=== PATIENT | male | born 1935 | race Asian ===

== ENCOUNTER 2019-03-20 18:04 | Observation (INO) | payer MEDICAID, SELFPAY ==
[2019-03-20 18:06] VITALS: BP 229/111; PULSE 95; RESP 20; TEMP 36.1; O2SAT 100; BMI 32.2
--- NOTE | 2019-03-20 18:55 | EKG12_ITS ---
Test Reason : HTN Blood Pressure : / mmHG Vent. Rate : 086 BPM Atrial Rate : 086 BPM P-R Int : 166 ms QRS Dur : 078 ms QT Int : 362 ms P-R-T Axes : 054 -08 026 degrees QTc Int : 433 ms Normal sinus rhythm Normal ECG Confirmed by NAZARIO MENESES ([id number]), food editor ASHA PLATT ([id number] on 03/26/2019 3:36:08 PM Referred By: Jose Young Confirmed By:NAZARIO MENESES
--- NOTE | 2019-03-20 19:00 | RAD_ITS ---
STUDY: X-RAY CHEST REASON FOR EXAM: Male, 83 years old. Chest pain TECHNIQUE: Frontal view of the chest COMPARISON: None. FINDINGS: The lungs are clear. There are no pleural effusions. There is no pneumothorax. The heart is normal in size. The visualized osseous structures are within normal limits. RAD/Chest 1 View (Portable) IMPRESSION: No acute thoracic pathology. Electronically Signed: Bernabe Mendoza, at 19:14 EDT Tel , Service support ,
--- NOTE | 2019-03-20 19:03 | US_ITS ---
STUDY: VENOUS DOPPLER ULTRASOUND - LEFT LOWER EXTREMITY REASON FOR EXAM: Male, 83 years old. Swelling TECHNIQUE: Ultrasound evaluation of the deep vein system to include eller-scale imaging and compression was performed. Eller-scale imaging and Doppler sonographic evaluation, including duplex spectral analysis and qualitative color flow sonography, was performed. COMPARISON: None. FINDINGS: Common Femoral Vein: Normal compression, spontaneity and augmentation. Normal color Doppler. Common Femoral Vein/Greater Saphenous Junction: Normal compression, spontaneity and augmentation. Normal color Doppler. Deep Femoral Vein: Normal compression, spontaneity and augmentation. Normal color Doppler. Femoral Proximal: Normal compression, spontaneity and augmentation. Normal color Doppler. Femoral Middle: Normal compression, spontaneity and augmentation. Normal color Doppler. Femoral Distal: Normal compression, spontaneity and augmentation. Normal color Doppler. Popliteal Vein: Normal compression, spontaneity and augmentation. Normal color Doppler. Posterior Tibial Vein: Normal compression, spontaneity and augmentation. Normal color Doppler. Peroneal Vein: Normal compression, spontaneity and augmentation. Normal color Doppler. US/Venous Duplex Imag/Limited/Uni IMPRESSION: Normal venous Doppler ultrasound of the lower extremity. Electronically Signed: Bernabe Mendoza, at 20:28 EDT Tel , Service support ,
[2019-03-20 19:12] VITALS: PULSE 82; RESP 15; O2SAT 98
[2019-03-20 19:40] LABS: Absolute Lymphocyte Count 1.35 X10^3/uL (0.83-4.51); Absolute Neutrophil Count 6.1 X10^3/uL (2.0-7.7); Basophil# 0.04 X10^3/uL; Basophil% 0.5 % (0-1); Eosinophil# 0.38 X10^3/uL; Eosinophils% 4.3 % (0-5); Hematocrit 38.4 % (40-54); Hemoglobin 12.3 g/dL (13.0-16.5); Lymphocyte # 1.35 X10^3/ul (4.0); Lymphocyte % 15.4 % (19-41); Mean Corpuscular Hgb 26.2 pg (27.0-32.0); Mean Corpuscular Volume 81.9 fL (80-94); Mean Platelet Vol. 9.8 fl (6.2-12.0); Monocyte# 0.83 X10^3/uL; Monocyte% 9.5 % (0-10); NRBC Flagged by Analyzer 0 % (0-5); Neutrophil # 6.08 X10^3/uL (2.7-7.7); Neutrophil % 69.5 % (47-70); Platelet Count 273 K/mm3 (150-450); RBC Distribution Width CV 13.6 % (11.6-14.6); RBC Distribution Width SD 39.9 fl (35.1-43.9); Red Blood Count 4.69 M/mm3 (4.6-6.2); White Blood Count 8.8 K/mm3 (4.4-11.0)
[2019-03-20 19:48] LABS: Prothrombin Time (Protime)PT. 13.4 SECONDS (11.7-14.9)
[2019-03-20 19:49] LABS: Partial Thromboplast Time 35.8 Seconds (24.1-36.2)
[2019-03-20] MEDS: 0.9% Normal Saline 1,000 ML 1000 ML IV (19:52)
[2019-03-20] MEDS: Ondansetron 4 MG/2 ML Vial IV (19:53)
[2019-03-20 20:00] LABS: ALB/GLOB Ratio 0.7 RATIO (0.9-2.4); AST(SGOT) 27 U/L (15-37); Alanine Aminotransfer ALT/SGPT 29 U/L (16-61); Albumin, Serum 3.1 g/dL (3.2-5.0); Alkaline Phosphatase 76 U/L (45-117); Anion Gap 7 (5-15); BUN 19 mg/dL (7-18); BUN/Creat Ratio 19.4 RATIO (10-20); Calcium,Total 9.3 mg/dL (8.5-10.1); Chloride 99 mmol/L (98-107); Creatinine, Serum 0.98 mg/dL (0.70-1.30); EST Glomerular Filtration Rate 78 mL/min (>60); Est Glom Filt Rate - Afr Amer 94 mL/min (>60); Estimated Creatinine Clearance 41.81 ml/min; Globulin 4.4 g/dL (2.2-4.2); Glucose 154 mg/dL (74-106); Lipase 161 U/L (73-393); Potassium 4.4 mmol/L (3.5-5.1); Protein, Total 7.5 g/dL (6.4-8.2); Sodium Level 135 mmol/L (136-145)
[2019-03-20 21:04] VITALS: BP 210/108; PULSE 88; RESP 12; O2SAT 98
[2019-03-20] MEDS: cloNIDine HCl 0.1 MG Tablet PO (22:33)
[2019-03-20 22:34] VITALS: BP 215/99; PULSE 81; RESP 18; O2SAT 98
--- NOTE | 2019-03-20 23:35 | ED.VISSUMM ---
- ER Visit Summary Date of Service: 03/20/19 Chief Complaint: High blood pressure History of Present Illness: The patient is a 83 M with high blood pressure. His systolic was in the 220s today. He has had some nausea vomiting. He said his blood pressure is normally in the 120s to 140 systolic. Controlled with metoprolol. He is taking his medications as prescribed. Patient has had knee surgery last week. It went well. He is not having any significant pain but does report some left leg swelling. Physical Examination: Blood pressure 229/111. Otherwise vitals unremarkable. Patient alert and oriented. No acute distress. He speaks some [place]. He is here with family and also help translate. Heart regular rate and rhythm. Lungs clear. Abdomen soft and nontender. Left calf is tender to palpation. Patient has a left knee incision site which appears unremarkable. No focal or lateralizing neurologic abnormalities. Pulses strong and equal. Test Results: EKG showed sinus rhythm at a rate of 86. Hemoglobin 12.3. Sodium 135, glucose 154, BUN 19. Hepatic panel, lipase, coags normal. Troponin normal. Chest x-ray normal. Normal mediastinum. Ultrasound left leg normal. Emergency Department Course and Treatment: Patient presents with hypertension. He was treated with labetalol and then subsequently Catapres. He had a transient drop in pressures, but pressures stayed above 200 systolic. He received hydralazine. Reevaluation is pending. He did have improvement in his nausea after treatment with Zofran. Troponin was 0.041, almost to the indeterminate range. He was still having high blood pressures, so I was concerned this may be elevating. We rechecked a 3-hour troponin and it was 0.049. I reevaluated the patient. He said his chest felt a little funny. He remained hypotensive. We are awaiting treatment with hydralazine. I will contact the hospitalist for further care. Treatment Plan: As above Disposition: Admission Impression: 1. Hypertension 2. Nausea and vomiting This note was generated with PreViser dictation software. It may contain incorrect words, spelling, and punctuation that were not noted in review of the chart prior to signing ED Disposition - Plan for ED Patient: Referrals: Lopez Up DO [Primary Care Provider] -
[2019-03-20] MEDS: hydrALAZINE 20 MG/ML Vial 10 MG IV (23:53)
[2019-03-20 23:54] VITALS: BP 158/93; PULSE 85; RESP 15; O2SAT 99
--- NOTE | 2019-03-20 23:55 | HP.PCM_ITS ---
Problem List (1) Hypertensive urgency Status: Acute (2) Diabetes mellitus type 2 Status: Chronic (3) Left knee TKR Status: Acute (4) Indeterminant troponin Status: Acute History of Present Illness Date of Admission: 03/20/19 Chief Complaint: High blood pressure with nausea The patient is a 83 year old M with history of hypertension and type 2 diabetes mellitus came to ER when he had high blood pressure noted at home. As per the son, blood pressure was 222/93. In ED, patient also had high blood pressure 229/111. Patient denies any recent change except had left TKR done on 03/15/2019 by [place] surgeon. Patient denies any knee pain or swelling or redness and he is on home PT doing well. Patient also had nausea. As per the ER physician, he had mild chest pain but to me he denied and said he had mildly nausea. Denies palpitation, shortness of breath, vomiting, near-syncope or syncope. First troponin was -0.04, second 1 slightly elevated in indeterminate range, 0.049. [] Patient had hydralazine 10 mg IV, labetalol 10 mg IV, clonidine 0.1 mg 1 dose each in ED and blood pressure improved to 158/93. Past Medical History Past Medical History (Chronic Problems): Chronic Problems Diabetes mellitus type 2 (Chronic) Allergies Penicillins Allergy (Verified 03/20/19 18:05) Rash naproxen [From Naprosyn] Adverse Reaction (Verified 03/20/19 18:05) Nausea/Vom/Diarrhea Home Medications: Ambulatory Orders Medication Instructions Recorded metFORMIN HCl [Glucophage] 500 mg PO BIDCM 01/25/16 Acetaminophen [Tylenol Extra 1,000 mg PO Q8H PRN PRN 03/20/19 Strength] Aspirin 325 mg PO DAILY@0800 03/20/19 Lisinopril/Hydrochlorothiazide 1 ea PO DAILY 03/20/19 [Lisinopril-Hctz 20-12.5 mg Tab] Metoprolol Tartrate [Lopressor 50 mg PO DAILY 03/20/19 (Beta Dona)] Oxycodone [Oxyir] 5 mg PO Q4H PRN PRN 03/20/19 Sitagliptin Phosphate [Januvia] 100 mg PO DAILY 03/20/19 Smoking Status: Never smoker - *Family History Paternal History Items: No pertinent history - Cardiac disease in first-degree family relative Review of Systems Constitutional: Denies: Chills, Fever, Weight Change HEENT: Denies: Head Aches, Sinus Congestion, Sinus Drainage Cardiovascular: Reports: Chest Pain. Denies: Chest Pressure, Edema, Palpitations Respiratory: Denies: Cough, Shortness of breath at rest, Sputum production Gastrointestinal: Reports: Nausea. Denies: Abdominal Pain, Vomiting Genitourinary: Denies: Dysuria, Frequency, Hematuria Musculoskeletal: Reports: Joint Pain - Left TKR recent.. Denies: Joint Tenderness Skin: Denies: Rash, Wounds Neurological: Denies: Numbness, Tingling, Focal weakness Psychiatric: Denies: Anxiety, Depression, Homicidal Ideations, Suicidal Ideations Hematologic/ Lymphatic: Denies: Easy Bruising, Easy Bleeding VTE Information - Inpt Only VTE Present on Admission: No VTE Mechan Device Prophylaxis: None VTE Pharm Prophylaxis ordered?: Yes Patient Problems: Active and Suspected Problems Hypertensive urgency (Acute) Left knee TKR (Acute) Indeterminant troponin (Acute) - Physical Exam General: Alert, Oriented x3, Cooperative HEENT: Atraumatic, PERRLA, EOMI, Normocephalic Neck: Supple, No JVD, Negative Carotid Bruits Lungs: Clear to auscultation, Normal air movement, No rhonchi, No wheeze, No rales Cardiovascular: Regular rate, Regular Rhythm, Normal S1, Normal S2, No murmurs Abdomen: Bowel Sounds Present, Soft, Non Tender, Non-Distended Extremities: No edema, Capillary Refill Less than 3 Seconds Skin: No rashes, No breakdown Musculoskeletal: No Tenderness to Palpation of Joints or Extremities, Arthritic Changes, - - No tenderness in operated left TKR. Postoperative dressing is dry. No surrounding signs of inflammation or redness. Neurological: Cranial nerves II-XII grossly intact, Deep Tendon Reflexes 2+/4 and Symmetrical, Neuro grossly intact Psych/Mental Status: Normal Affect, Appropriate Vital Signs Temp Pulse Resp BP Pulse Ox 96.9 F L 85 15 158/93 H 99 03/20/19 18:06 03/20/19 23:54 03/20/19 23:54 03/20/19 23:54 03/20/19 23:54 Oxygen Delivery Method Room Air Weight: 165 lb Body Mass Index (BMI) 32.2 Intake and Output for Last 24 Hours 1003/19/19 03/20/19 23:59 23:59 23:59 Intake Total 1000 / 1000 Balance 1000 / 1000 Laboratory Tests Past 24 Hrs 03/20/19 03/20/19 03/20/19 19:30 19:30 19:30 WBC 8.8 RBC 4.69 Hgb 12.3 L Hct 38.4 L MCV 81.9 MCH 26.2 L MCHC 32.0 RDW Std Deviation 39.9 RDW Coeff of Kofi 13.6 Plt Count 273 MPV 9.8 Immature Gran % (Auto) 0.800 Neut % (Auto) 69.5 Lymph % (Auto) 15.4 L [place] % (Auto) 9.5 Eos % (Auto) 4.3 Baso % (Auto) 0.5 Absolute Neuts (auto) 6.1 Absolute Lymphs (auto) 1.35 Nucleated RBC % 0 PT 13.4 INR 1.0 APTT 35.8 Sodium 135 L Potassium 4.4 Chloride 99 Carbon Dioxide 29.0 Anion Gap 7 BUN 19 H Creatinine 0.98 Estim Creat Clear Calc 41.81 Est GFR (MDRD) Af Amer 94 Est GFR (MDRD) Non-Af 78 BUN/Creatinine Ratio 19.4 Glucose 154 H Calcium 9.3 Total Bilirubin 0.30 AST 27 ALT 29 Alkaline Phosphatase 76 Troponin I 0.041 Total Protein 7.5 Albumin 3.1 L Globulin 4.4 H Albumin/Globulin Ratio 0.7 L Lipase 161 03/20/19 22:27 WBC RBC Hgb Hct MCV MCH MCHC RDW Std Deviation RDW Coeff of Kofi Plt Count MPV Immature Gran % (Auto) Neut % (Auto) Lymph % (Auto) [place] % (Auto) Eos % (Auto) Baso % (Auto) Absolute Neuts (auto) Absolute Lymphs (auto) Nucleated RBC % PT INR APTT Sodium Potassium Chloride Carbon Dioxide Anion Gap BUN Creatinine Estim Creat Clear Calc Est GFR (MDRD) Af Amer Est GFR (MDRD) Non-Af BUN/Creatinine Ratio Glucose Calcium Total Bilirubin AST ALT Alkaline Phosphatase Troponin I 0.049 H Total Protein Albumin Globulin Albumin/Globulin Ratio Lipase Assessment/Plan All Active Problems Hypertensive urgency (Acute) Left knee TKR (Acute) Indeterminant troponin (Acute) The patient is a 83 year old M with history of hypertension and type 2 diabetes mellitus came to ER when he had high blood pressure noted at home. As per the son, blood pressure was 222/93. In ED, patient also had high blood pressure 229/111. First troponin was -0.04, second 1 slightly elevated in indeterminate range, 0.049. [] Patient had hydralazine 10 mg IV, labetalol 10 mg IV, clonidine 0.1 mg 1 dose each in ED and blood pressure improved to 158/93. 1. Hypertensive urgency with nausea possible atypical presentation of chest pain: EKG done in the ER showed normal sinus rhythm at 86 bpm. QTc 433 ms. T inversion in just 1-lead V1. No prior EKG to compare. Patient denies any previous history of coronary artery disease or [place]/stroke or peripheral arterial disease and symptoms did not had a stress test, echo or cardiac cath in the past. Patient is being admitted in PCU. In PCU blood pressure is further improved to 120/56. Intermittent troponin. Monitor serial troponin enzymes. Lexiscan nuclear stress test tomorrow morning. Patient on aspirin 325 mg, indication unclear but continued. 2. Diabetes mellitus type 2: The suspicion of coronary artery disease in view of diabetes mellitus and hypertension. Blood sugar is controlled 154 in BMP. A1c tomorrow a.m. Accu-Chek before meals and at bedtime and cover with Humalog sliding scale. Hold metformin. Continue Januvia. 3. Recent left TKR on 03/15/2019. No local signs of inflammation. Doing well with home PT. PT and OT ordered. No acute issues. 4. DVT prophylaxis: On Lovenox 40 mg subcu daily. Code Visit OBSV E&M: [id number] Initial observation care L3
[2019-03-21] VITALS (10 sets, daily range): BP systolic 108–126; BP diastolic 45–58; PULSE 68–97; RESP 14–16; TEMP 36.8–37; O2SAT 98–100; BMI 33.5; BMI 33.6
--- NOTE | 2019-03-21 01:50 | EKG12_ITS ---
Test Reason : HYPERTENSION Blood Pressure : / mmHG Vent. Rate : 071 BPM Atrial Rate : 071 BPM P-R Int : 174 ms QRS Dur : 072 ms QT Int : 382 ms P-R-T Axes : 053 -12 023 degrees QTc Int : 415 ms Normal sinus rhythm with sinus arrhythmia Normal ECG Confirmed by ANITA DARBY, DELVIS ([id number]), publications editor ASHA PLATT ([id number]) on 03/28/2019 9:28:45 AM Referred By: Joes Young Confirmed By:GISSELLE HOWARD MD
[2019-03-21] MEDS: Enoxaparin 40 MG/0.4 ML Syringe SC (02:14)
[2019-03-21 03:42] LABS: Anion Gap 10 (5-15); BUN 16 mg/dL (7-18); Calcium,Total 8.3 mg/dL (8.5-10.1); Chloride 102 mmol/L (98-107); Cholesterol 127 mg/dL (200); EST Glomerular Filtration Rate 99 mL/min (>60); Est Glom Filt Rate - Afr Amer 119 mL/min (>60); Estimated Creatinine Clearance 51.22 ml/min; Glucose 159 mg/dL (74-106); High Density Lipoprotein 31 mg/dL; Magnesium 1.3 mg/dL (1.6-2.6); Sodium Level 137 mmol/L (136-145); Thyroid Stim Hormone (TSH) 0.52 uIU/mL (0.358-3.74); Triglycerides 224 mg/dL; Very Low Density Lipoprotein 45 mg/dL (5-40)
[2019-03-21] MEDS: 0.9% NaCl Peripheral Flush Adult/Peds IV ×3 (05:07→10:33)
--- NOTE | 2019-03-21 06:59 | STEWCON_ITS ---
Reason For Study: HTN Stress Results Protocol: Dobutamine with definity Maximum Predicted HR: 139 bpm Target HR: 118 bpm % Maximum Predicted HR: 86 % DurationHeart Rate Stage (mm:ss) (bpm) BP Dose Comment BASELINE 69 144/65 1 CC DEFINITY STAGE 1 3:00 73 141/5710.001 CC DEFINITY STAGE 2 3:00 109 137/7620.00 STAGE 3 1:58 120 / 30.001 CC DEFINITY RECOVERY 90 135/55 1 CC DEFINITY Stress Duration: 7:58 mm:ss Maximum Stress HR: 120 bpm Baseline Echocardiogram Findings The estimated ejection fraction is 65 %. Stress Echo Wall motion Data Resting WM Intermediate WM Stress WM Resting Wall Motion Wall Motion Stress No regional wall motion No regional wall motion abnormalities noted. abnormalities noted. EKG Data The baseline ECG displays normal sinus rhythm. The patient was titrated from 10 mcg to a maximun of 30 mcg of dobutamine during the stress. The maximum heart rate attained was 120 beats per minute. This was 86% of maximum predicted heart rate. During dobutamine infusion, there were no ST or T wave changes noted to suggest ischemia. No clinical angina was noted. Interpretation Summary The estimated ejection fraction is 65 %. Normal, adequate, dobutamine echocardiogram. Negative for ischemia by EKG and echocardiographic criteria. No anginal symptoms noted. No arrhythmias noted. Test terminated due to attainment of target heart rate. Appropriate blood pressure response to dobutamine. Final LVEF is 75%. Decreased sensitivity due to poor echo windows requiring Definity agent. Patient tolerated procedure well, no complications. The study was technically difficult. Contrast injection was performed. Ordering Physician: Franki Pollock Referring Physician: Jose Young Performed By: Renuka Lau RDCS
[2019-03-21 07:01] LABS: Bedside Glucose 133 mg/dL (70-110)
--- NOTE | 2019-03-21 07:01 | ECHOCS_ITS ---
Reason For Study: HYPERTENSION Procedure This was a 2D Doppler, Color Flow transthoracic echocardiogram. Exam performed in department. Left Ventricle Normal size and thickness. The estimated ejection fraction is 65 %. Stage 1 diastolic dysfunction. No regional wall motion abnormalities noted. Right Ventricle Mildly dilated right ventricle. A moderator band is seen in the right ventricle. Normal systolic function. Atria Normal left atrium. Normal right atrium. Normal atrial septum. Mitral Valve Normal mitral valve. Trivial mitral valve insufficiency. Tricuspid Valve Normal tricuspid valve. Trivial tricuspid valve insufficiency. Right ventricular systolic pressure estimated to be 40 mmHg. Mild pulmonary hypertension. Aortic Valve Trisinus/trileaflet aortic valve. Mild diffuse aortic valve thickening. There is no aortic stenosis. Trivial aortic valve insufficiency. Pulmonic Valve Normal pulmonic valve. Trivial pulmonic valve insufficiency. Great Vessels Normal aortic root. Normal arch. Normal inferior vena cava. Inferior vena cava collapse with sniff. Pericardium/Pleural No pericardial effusion. Medication Diluted definity 2ml given slow IV push to enhance endocardial definition. Performed a rapid injection of agitated mix of 9 cc saline and 1cc air to assess for atrial septal defect. MMode/2D Measurements & Calculations LVIDd: 3.7 cm IVSd: 0.83 cm Ao root diam: 3.2 cm LVIDs: 2.4 cm LVPWd: 0.92 cm RVDd: 3.7 cm FS: 35.1 % LAV(MOD-bp): 36.0 ml LVAd ap4: 25.8 cm2 SV(MOD-sp4): 52.7 ml LAV(MOD-bp) Indexed: 20.6 ml/m2 EDV(MOD-sp4): 74.4 ml LAV(MOD-sp2): 42.4 ml EDV(sp4-el): 79.5 ml LAV(MOD-sp4): 25.6 ml LVAs ap4: 12.2 cm2 ESV(MOD-sp4): 21.7 ml ESV(sp4-el): 22.4 ml EF(MOD-sp4): 70.8 % EF(sp4-el): 71.8 % SV(sp4-el): 57.0 ml LA A4 area: 11.7 cm2 LA dimension(2D): 4.0 cm RA A4 area: 12.1 cm2 Time Measurements MV dec time: 0.20 sec Doppler Measurements & Calculations MV E max samuel: 95.8 cm/sec Lat Peak E' Samuel: 7.9 cm/sec Med Peak E' Samuel: 9.4 cm/sec MV A max samuel: 143.7 cm/sec E/E' lat: 12.2 E/E' med: 10.2 MV E/A: 0.67 Ao V2 max: 144.3 cm/sec LV V1 max: 90.4 cm/sec PA V2 max: 95.7 cm/sec Ao max P.3 mmHg LV V1 max P.3 mmHg TR max samuel: 281.6 cm/sec TR max P.8 mmHg Interpretation Summary The estimated ejection fraction is 65 %. Stage 1 diastolic dysfunction. Mildly dilated right ventricle. Trivial mitral valve insufficiency. Trivial tricuspid valve insufficiency. Right ventricular systolic pressure estimated to be 40 mmHg. Mild pulmonary hypertension. Trivial aortic valve insufficiency. The study was technically difficult. Contrast injection was performed. There is no comparison study available. Ordering Physician: Franki Pollock Referring Physician: SCOTTY GAMBOA Performed By: Renuka Lau RDCS
[2019-03-21 07:52] LABS: Hemoglobin A1c 6.7 % (4.2-6.3)
[2019-03-21] MEDS: Aspirin 325 MG Tablet PO (07:58)
--- NOTE | 2019-03-21 09:39 | CON.PCM_ITS ---
<Gui Merchant - Last Filed: 03/21/19 10:09> Problem List (1) Hypertensive urgency Status: Acute (2) Diabetes mellitus type 2 Status: Chronic (3) Indeterminant troponin Status: Acute Reason for Consult Date of Consultation: 03/21/19 Reason for Consultation: Hypertensive urgency with indeterminate troponin History of Present Illness: The patient is a 83 year old M who presented to [facility] emergency department on 03/20/2019 with elevated blood pressure and nausea. He has a previous history of hypertension and diabetes mellitus. He recently underwent left total knee replacement and Alfonso. Patient was routinely checking his blood pressure and noted that it was elevated with systolics in the 200s. This was associated with the nausea. There were no associated chest pain, shortness of breath, vision changes, headaches, presyncope, or syncope. His emergency department evaluation revealed blood pressure 229/111. His EKG showed sinus rhythm at a rate of 86 bpm. His laboratory work was relatively negative. His second troponin was noted to be slightly elevated 0.049. He underwent a left lower extremity venous ultrasound that was negative for DVT. He was started on IV and PO medication for hypertension and admitted for further evaluation. Cardiology was consulted due to elevated indeterminate troponin in the setting of hypertension urgency. Past Medical History Allergies/Adverse Reactions: Allergies Penicillins Allergy (Verified 03/20/19 18:05) Rash naproxen [From Naprosyn] Adverse Reaction (Verified 03/20/19 18:05) Nausea/Vom/Diarrhea Home Medications: Ambulatory Orders Medication Instructions Recorded metFORMIN HCl [Glucophage] 500 mg PO BIDCM 01/25/16 Acetaminophen [Tylenol Extra 1,000 mg PO Q8H PRN PRN 03/20/19 Strength] Aspirin 325 mg PO DAILY@0800 03/20/19 Lisinopril/Hydrochlorothiazide 2 ea PO QHS 03/20/19 [Lisinopril-Hctz 20-12.5 mg Tab] Metoprolol Tartrate [Lopressor 50 mg PO DAILY 03/20/19 (Beta Dona)] Oxycodone [Oxyir] 5 mg PO Q4H PRN PRN 03/20/19 Sitagliptin Phosphate [Januvia] 100 mg PO DAILY 03/20/19 Past Medical History (Chronic Problems): Chronic Problems Diabetes mellitus type 2 (Chronic) - *Family History Paternal History Items: No pertinent history - Cardiac disease in first-degree family relative Smoking Status: Never smoker Review of Systems - Review of Systems General: Denies: Fever, Fatigue, Malaise, Chills, Weakness HEENT: Denies: Vision Change, Blurred Vision Cardiovascular: Reports: Peripheral Edema - left lower leg. Denies: Chest Discomfort, Chest Discomfort at Rest, Chest Discomfort with Exertion, Chest Pressure, Chest Tightness, Chest Heaviness, Shortness of Breath, Shortness of Breath at Rest, Shortness of Breath with Exertion, Orthopnea, PND, Palpitations, Lightheadedness, Dizziness, Near Syncope, Syncope, Claudication Respiratory: Denies: Cough Genitourinary: Denies: Dysuria Muscoloskeletal: Denies: Myalgias Skin: Denies: Rash Neurological: Denies: Dizziness Subjectve: Patient seen and evaluated. His subjective data was obtained via son. Patient's Vincentian is very limited. He denies any chest pain, shortness of breath, nausea, vomiting, presyncope syncope, orthopnea or PND. Objective: Vital Signs Temp Pulse Resp BP Pulse Ox 98.6 F 75 14 108/58 L 98 03/21/19 09:08 03/21/19 09:08 03/21/19 09:08 03/21/19 09:08 03/21/19 09:08 Oxygen Delivery Method Room Air Weight: 171 lb 15.369 oz Body Mass Index (BMI) 33.5 Intake and Output for Last 24 Hours 03/19/19 03/20/19 03/21/19 23:59 23:59 23:59 Intake Total 1000 / 1000 108.8 / 108.8 Balance 1000 / 1000 108.8 / 108.8 General: Healthy Appearing, Awake, Alert, Oriented x 3, Cooperative HEENT: Atraumatic Oral: Moist Mucosa Neck: No JVD Lungs: Clear to auscultation Cardiovascular: Regular Rhythm, Normal S1, Normal S2, No Rubs, No Gallops Murmur Murmur: Grade 2/6, Early Systolic, LLSB Vascular: No Carotid Bruits Abdomen: Bowel Sounds Present, Soft Extremities: No Cyanosis, No Clubbing, No edema, Normal Capillary Refill Musculoskeletal: No Erythema Skin: No Rashes Lymphatic: No Lymph Node Enlargement Neurological: No Focal Motor or Sensory Deficit 03/20/19 19:30: WBC 8.8, RBC 4.69, Hgb 12.3 L, Hct 38.4 L, MCV 81.9, MCH 26.2 L, MCHC 32.0, Plt Count 273, MPV 9.8, Immature Gran % (Auto) 0.800, Neut % (Auto) 69.5, Lymph % (Auto) 15.4 L, Ceiba % (Auto) 9.5, Eos % (Auto) 4.3, Baso % (Auto) 0.5, Absolute Neuts (auto) 6.1, Nucleated RBC % 0 03/20/19 19:30: PT 13.4, INR 1.0, APTT 35.8 03/20/19 19:30: Sodium 135 L, Potassium 4.4, Chloride 99, Carbon Dioxide 29.0, Anion Gap 7, BUN 19 H, Creatinine 0.98, Est GFR (MDRD) Af Amer 94, Est GFR (MDRD) Non-Af 78, BUN/Creatinine Ratio 19.4, Glucose 154 H, Calcium 9.3, Total Bilirubin 0.30, Troponin I 0.041 03/20/19 19:30: Hemoglobin A1c 6.7 H 03/20/19 22:27: Troponin I 0.049 H 03/21/19 02:52: Sodium 137, Potassium 4.0, Chloride 102, Carbon Dioxide 25.0, Anion Gap 10, BUN 16, Creatinine 0.80, Est GFR (MDRD) Af Amer 119, Est GFR (MDRD) Non-Af 99, BUN/Creatinine Ratio 20.0, Glucose 159 H, Calcium 8.3 L, Magnesium 1.3 L, Triglycerides 224 H, Cholesterol 127, LDL Cholesterol 51, VLDL Cholesterol 45 H, HDL Cholesterol 31 L 03/21/19 02:52: Troponin I 0.075 H Rhythm: EKG: ECHO: Stress Test: Cardiac Cath: PCI: CT Surgery: Holter monitor: EPS: PPM: CXR: Chest CT Scan: Assessment/Plan 1. Hypertensive Urgency Patient initially presented with elevated blood pressure greater than systolic 200s. This was associated with nausea. He was given clonidine 0.1 mg p.o. and IV hydralazine. His blood pressure this morning is well controlled and on the lower side. His laboratory results do not reveal any end organ damage. He feels symptomatically improved. He will continue with current medical therapy which includes metoprolol succinate 50 mg p.o. daily. His lisinopril?hydrochlorothiazide is currently scheduled for this evening at 40-25 mg. His blood pressure will have to be monitored closely throughout the day and his lisinopril?hydrochlorothiazide medication may need adjusted to avoid hypotension. He will undergo an echocardiogram to evaluate LV function and LV size. This will help further guide treatment. 2. Indeterminate troponin His troponin trend is 0.041, 0.049, and 0.075. This may be result of his high blood pressure upon presentation. However, given his history of diabetes, age, and obesity, it is prudent to ensure no underlying cardiovascular disease. He will continue with aspirin therapy. From a cardiovascular standpoint he does not require 325 mg however, he may be on this and at a higher dose due to recent left knee replacement surgery. He will undergo a stress echocardiogram to evaluate further. Based on results, further recommendation will be made. His twelve-lead EKG reveals normal sinus rhythm without acute ST changes. There is T wave inversion in lead V1 only. 3. Diabetes Mellitus This will be managed and followed by primary team/internal medicine. 4. Hypomagnesemia Patient's magnesium was noted to be 1.3. He received 2 g IV already. He will receive an additional 2 g to total 4 grams. Patient's case was discussed further with Dr. Pollock, who will also personally evaluate patient. Thank you for allowing us to participate in the patients plan of care, if you have any questions please do not hesitate to call. This note was generated using a voice recognition system and there may be incorrect words, spelling or punctuation that were not noted when reviewing the office note prior to saving. <Franki Pollock - Last Filed: 03/21/19 12:43> Problem List (1) Hypertensive urgency Status: Acute (2) Diabetes mellitus type 2 Status: Chronic (3) Indeterminant troponin Status: Acute Reason for Consult History of Present Illness: The patient is a 83 year old M who was seen and examined in conjunction with Gui merchant. History obtained vis-?-vis the patient's daughter as the patient does not speak much Vincentian. Apparently the patient developed nausea and vomiting yesterday so much so that he was unable to take his antihypertensive medications. When this did not improve, he presented to the emergency room after finding that his blood pressure was 229/111 at home. He was asymptomatic and denied any chest pain or anginal symptoms. Had a weakly indeterminate troponin, and underwent a dobutamine echocardiogram as he recently underwent knee replacement surgery at an outside facility. This was negative for inducible ischemia. In addition he underwent a 2D echo with Doppler which showed an EF of 65%, and mild pulmonary hypertension with an RVSP of 40 mmHg. Patient is resting comfortably, is not tachypneic or tachycardic. Pulmonary embolism is unlikely. [] Objective: Vital Signs Temp Pulse Resp BP Pulse Ox 98.6 F 74 14 108/58 L 98 03/21/19 09:08 03/21/19 09:45 03/21/19 09:08 03/21/19 09:08 03/21/19 09:08 Oxygen Delivery Method Room Air Weight: 171 lb 15.369 oz Body Mass Index (BMI) 33.5 Intake and Output for Last 24 Hours 03/19/19 03/20/19 03/21/19 23:59 23:59 23:59 Intake Total 1000 / 1000 108.8 / 108.8 Balance 1000 / 1000 108.8 / 108.8 03/20/19 19:30: WBC 8.8, RBC 4.69, Hgb 12.3 L, Hct 38.4 L, MCV 81.9, MCH 26.2 L, MCHC 32.0, Plt Count 273, MPV 9.8, Immature Gran % (Auto) 0.800, Neut % (Auto) 69.5, Lymph % (Auto) 15.4 L, Ceiba % (Auto) 9.5, Eos % (Auto) 4.3, Baso % (Auto) 0.5, Absolute Neuts (auto) 6.1, Nucleated RBC % 0 03/20/19 19:30: PT 13.4, INR 1.0, APTT 35.8 03/20/19 19:30: Sodium 135 L, Potassium 4.4, Chloride 99, Carbon Dioxide 29.0, Anion Gap 7, BUN 19 H, Creatinine 0.98, Est GFR (MDRD) Af Amer 94, Est GFR (MDRD) Non-Af 78, BUN/Creatinine Ratio 19.4, Glucose 154 H, Calcium 9.3, Total Bilirubin 0.30, Troponin I 0.041 03/20/19 19:30: Hemoglobin A1c 6.7 H 03/20/19 22:27: Troponin I 0.049 H 03/21/19 02:52: Sodium 137, Potassium 4.0, Chloride 102, Carbon Dioxide 25.0, Anion Gap 10, BUN 16, Creatinine 0.80, Est GFR (MDRD) Af Amer 119, Est GFR (MDRD) Non-Af 99, BUN/Creatinine Ratio 20.0, Glucose 159 H, Calcium 8.3 L, Magnesium 1.3 L, Triglycerides 224 H, Cholesterol 127, LDL Cholesterol 51, VLDL Cholesterol 45 H, HDL Cholesterol 31 L 03/21/19 02:52: Troponin I 0.075 H 03/21/19 09:22: Troponin I 0.048 H Rhythm: EKG: ECHO: Stress Test: Cardiac Cath: PCI: CT Surgery: Holter monitor: EPS: PPM: CXR: Chest CT Scan: Assessment/Plan Interventional cardiology addendum: Patient seen and examined in conjunction with Gui merchant. Echocardiogram performed which showed normal LV function and mild pleural hypertension with an RVSP of 40 mmHg. Stress test was negative. Patient is chest pain-free. Pulmonary embolism unlikely. I recommended the patient continue his antihypertensive therapy as outlined in the MRF. Would recommend restarting his lisinopril/hydrochlorthiazide as well as his beta-dona. No indication for diagnostic coronary angina gram at this time. If the patient develops exertional anginal symptoms despite maximal medical therapy and optimal blood pressure, I would have a low threshold for either diagnostic coronary angiogram or a CTA to evaluate for possible pulmonary embolism. However, the patient does not have overt signs or symptoms of pulmonary embolism as he is not tachypnea, tachycardic, and appears to have hypertensive urgency to explain his symptoms. EKG was normal. At this point the patient may be discharged home from a cardiac standpoint. He can see Dr. Pollock in the office going forward. Thank you very much for the opportunity to participate in the cardiac care of yo ur patient. Consultation time took place between 12 and 12:30 PM. Code Visit Inpatient E&M: 23158 Init Hosp L2
[2019-03-21] MEDS: Metoprolol(XL)Succ 50 MG Tablet PO (09:45)
[2019-03-21] MEDS: LINAGLIPTIN 5 MG TABLET PO (09:45)
[2019-03-21 11:55] LABS: Bedside Glucose 129 mg/dL (70-110)
--- NOTE | 2019-03-21 15:16 | DCINST_ITS ---
- Discharge Diagnoses Current Active Problems: Current Active and Chronic Problems Hypertensive urgency (Acute) Diabetes mellitus type 2 (Chronic) Left knee TKR (Acute) Indeterminant troponin (Acute) You will use the following diet at home:: Calorie/Carbohydrate Controlled (specify 1200, 1400, etc), Cardiac Your food should be the consistency of: Regular Your liquids should be the consistency of: Regular/Thin Discharge Activity: Return to Normal Activity Call your doctor if you observe: Fever of 101 or Higher, Shortness of breath, Dizziness, Fainting spells, Swelling in the ankles, Chest pain Additional Instructions: 1. The stress test was negative for any indication of significant coronary artery disease. Your heart squeezes normally. T.he heart monitor showed no problem with the rhythm. Your BP Is well controlled now. Any anxiety can really increase the BP and that may be what happened last night when you were nauseated. Allergies/Adverse Reactions: Allergies Penicillins Allergy (Verified 03/20/19 18:05) Rash naproxen [From Naprosyn] Adverse Reaction (Verified 03/20/19 18:05) Nausea/Vom/Diarrhea Medications to take at Discharge metFORMIN HCl [Glucophage] 500 mg PO BIDCM 01/25/16 Acetaminophen [Tylenol] 1,000 mg PO Q8H PRN PRN 03/20/19 Aspirin 325 mg PO DAILY@0800 03/20/19 Lisinopril/Hydrochlorothiazide [Lisinopril-Hctz 20-12.5 mg Tab] 2 ea PO QHS 03/20/19 Metoprolol Tartrate [Lopressor (beta yisel)] 50 mg PO DAILY 03/20/19 Oxycodone [Oxyir] 5 mg PO Q4H PRN PRN 03/20/19 Sitagliptin Phosphate [Januvia] 100 mg PO DAILY 03/20/19 Primary Care Physician: Lopez Up DO [Primary Care Provider] - Please follow up with your Primary Care Physician in: 1 week to check the BP Test Results: Test results from this visit will be discussed in further detail at your follow- up appointment, if applicable. Proposed Discharge Date: 03/21/19
--- NOTE | 2019-03-21 15:46 | PCM.DC.SUM ---
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 Electronically Signed: Bernabe Mendoza, at 19:14 EDT Tel , Service support , Venous Duplex 03/20/19 19:03 IMPRESSION: Normal venous Doppler ultrasound of the lower extremity. Electronically Signed: Bernabe Mendoza, at 20:28 EDT Tel , Service support , Laboratory Tests 03/21/19 03/21/19 03/21/19 Range/Units 11:51 09:22 06:44 WBC (4.4-11.0) K/mm3 RBC (4.6-6.2) M/mm3 Hgb (13.0-16.5) g/dL Hct (40-54) % MCV (80-94) fL MCH (27.0-32.0) pg MCHC (32-36) g/dL RDW Std Deviation (35.1-43.9) fl RDW Coeff of Kofi (11.6-14.6) % Plt Count (150-450) K/mm3 MPV (6.2-12.0) fl Immature Gran % (Auto) (0.0-0.9) % Neut % (Auto) (47-70) % Lymph % (Auto) (19-41) % Morrison % (Auto) (0-10) % Eos % (Auto) (0-5) % Baso % (Auto) (0-1) % Absolute Neuts (auto) (2.0-7.7) X10^3/uL Absolute Lymphs (auto) (0.83-4.51) X10^3/uL Nucleated RBC % (0-5) % PT (11.7-14.9) SECONDS INR APTT (24.1-36.2) Seconds Sodium (136-145) mmol/L Potassium (3.5-5.1) mmol/L Chloride (98-107) mmol/L Carbon Dioxide (21.0-32.0) mmol/L Anion Gap (5-15) BUN (7-18) mg/dL Creatinine (0.70-1.30) mg/dL Estim Creat Clear Calc ml/min Est GFR (MDRD) Af Amer (>60) mL/min Est GFR (MDRD) Non-Af (>60) mL/min BUN/Creatinine Ratio (10-20) RATIO Glucose (74-106) mg/dL Hemoglobin A1c (4.2-6.3) % Calcium (8.5-10.1) mg/dL Magnesium (1.6-2.6) mg/dL Total Bilirubin (0.20-1.00) mg/dL AST (15-37) U/L ALT (16-61) U/L Alkaline Phosphatase (45-117) U/L Troponin I 0.048 H (<0.045) ng/mL Total Protein (6.4-8.2) g/dL Albumin (3.2-5.0) g/dL Globulin (2.2-4.2) g/dL Albumin/Globulin Ratio (0.9-2.4) RATIO Triglycerides ( - 199) mg/dL Cholesterol (200) mg/dL LDL Cholesterol (0-130) mg/dL VLDL Cholesterol (5-40) mg/dL HDL Cholesterol (40 - ) mg/dL Lipase (73-393) U/L TSH (0.358-3.74) uIU/mL POC Glucose 129 H 133 H (70-110) mg/dL 03/21/19 03/21/19 03/20/19 Range/Units 02:52 02:52 22:27 WBC (4.4-11.0) K/mm3 RBC (4.6-6.2) M/mm3 Hgb (13.0-16.5) g/dL Hct (40-54) % MCV (80-94) fL MCH (27.0-32.0) pg MCHC (32-36) g/dL RDW Std Deviation (35.1-43.9) fl RDW Coeff of Kofi (11.6-14.6) % Plt Count (150-450) K/mm3 MPV (6.2-12.0) fl Immature Gran % (Auto) (0.0-0.9) % Neut % (Auto) (47-70) % Lymph % (Auto) (19-41) % Morrison % (Auto) (0-10) % Eos % (Auto) (0-5) % Baso % (Auto) (0-1) % Absolute Neuts (auto) (2.0-7.7) X10^3/uL Absolute Lymphs (auto) (0.83-4.51) X10^3/uL Nucleated RBC % (0-5) % PT (11.7-14.9) SECONDS INR APTT (24.1-36.2) Seconds Sodium 137 (136-145) mmol/L Potassium 4.0 (3.5-5.1) mmol/L Chloride 102 (98-107) mmol/L Carbon Dioxide 25.0 (21.0-32.0) mmol/L Anion Gap 10 (5-15) BUN 16 (7-18) mg/dL Creatinine 0.80 (0.70-1.30) mg/dL Estim Creat Clear Calc 51.22 ml/min Est GFR (MDRD) Af Amer 119 (>60) mL/min Est GFR (MDRD) Non-Af 99 (>60) mL/min BUN/Creatinine Ratio 20.0 (10-20) RATIO Glucose 159 H (74-106) mg/dL Hemoglobin A1c (4.2-6.3) % Calcium 8.3 L (8.5-10.1) mg/dL Magnesium 1.3 L (1.6-2.6) mg/dL Total Bilirubin (0.20-1.00) mg/dL AST (15-37) U/L ALT (16-61) U/L Alkaline Phosphatase (45-117) U/L Troponin I 0.075 H 0.049 H (<0.045) ng/mL Total Protein (6.4-8.2) g/dL Albumin (3.2-5.0) g/dL Globulin (2.2-4.2) g/dL Albumin/Globulin Ratio (0.9-2.4) RATIO Triglycerides 224 H ( - 199) mg/dL Cholesterol 127 (200) mg/dL LDL Cholesterol 51 (0-130) mg/dL VLDL Cholesterol 45 H (5-40) mg/dL HDL Cholesterol 31 L (40 - ) mg/dL Lipase (73-393) U/L TSH 0.52 (0.358-3.74) uIU/mL POC Glucose (70-110) mg/dL 03/20/19 03/20/19 03/20/19 Range/Units 19:30 19:30 19:30 WBC (4.4-11.0) K/mm3 RBC (4.6-6.2) M/mm3 Hgb (13.0-16.5) g/dL Hct (40-54) % MCV (80-94) fL MCH (27.0-32.0) pg MCHC (32-36) g/dL RDW Std Deviation (35.1-43.9) fl RDW Coeff of Kofi (11.6-14.6) % Plt Count (150-450) K/mm3 MPV (6.2-12.0) fl Immature Gran % (Auto) (0.0-0.9) % Neut % (Auto) (47-70) % Lymph % (Auto) (19-41) % Morrison % (Auto) (0-10) % Eos % (Auto) (0-5) % Baso % (Auto) (0-1) % Absolute Neuts (auto) (2.0-7.7) X10^3/uL Absolute Lymphs (auto) (0.83-4.51) X10^3/uL Nucleated RBC % (0-5) % PT 13.4 (11.7-14.9) SECONDS INR 1.0 APTT 35.8 (24.1-36.2) Seconds Sodium 135 L (136-145) mmol/L Potassium 4.4 (3.5-5.1) mmol/L Chloride 99 (98-107) mmol/L Carbon Dioxide 29.0 (21.0-32.0) mmol/L Anion Gap 7 (5-15) BUN 19 H (7-18) mg/dL Creatinine 0.98 (0.70-1.30) mg/dL Estim Creat Clear Calc 41.81 ml/min Est GFR (MDRD) Af Amer 94 (>60) mL/min Est GFR (MDRD) Non-Af 78 (>60) mL/min BUN/Creatinine Ratio 19.4 (10-20) RATIO Glucose 154 H (74-106) mg/dL Hemoglobin A1c 6.7 H (4.2-6.3) % Calcium 9.3 (8.5-10.1) mg/dL Magnesium (1.6-2.6) mg/dL Total Bilirubin 0.30 (0.20-1.00) mg/dL AST 27 (15-37) U/L ALT 29 (16-61) U/L Alkaline Phosphatase 76 (45-117) U/L Troponin I 0.041 (<0.045) ng/mL Total Protein 7.5 (6.4-8.2) g/dL Albumin 3.1 L (3.2-5.0) g/dL Globulin 4.4 H (2.2-4.2) g/dL Albumin/Globulin Ratio 0.7 L (0.9-2.4) RATIO Triglycerides ( - 199) mg/dL Cholesterol (200) mg/dL LDL Cholesterol (0-130) mg/dL VLDL Cholesterol (5-40) mg/dL HDL Cholesterol (40 - ) mg/dL Lipase 161 (73-393) U/L TSH (0.358-3.74) uIU/mL POC Glucose (70-110) mg/dL 03/20/19 Range/Units 19:30 WBC 8.8 (4.4-11.0) K/mm3 RBC 4.69 (4.6-6.2) M/mm3 Hgb 12.3 L (13.0-16.5) g/dL Hct 38.4 L (40-54) % MCV 81.9 (80-94) fL MCH 26.2 L (27.0-32.0) pg MCHC 32.0 (32-36) g/dL RDW Std Deviation 39.9 (35.1-43.9) fl RDW Coeff of Kofi 13.6 (11.6-14.6) % Plt Count 273 (150-450) K/mm3 MPV 9.8 (6.2-12.0) fl Immature Gran % (Auto) 0.800 (0.0-0.9) % Neut % (Auto) 69.5 (47-70) % Lymph % (Auto) 15.4 L (19-41) % Morrison % (Auto) 9.5 (0-10) % Eos % (Auto) 4.3 (0-5) % Baso % (Auto) 0.5 (0-1) % Absolute Neuts (auto) 6.1 (2.0-7.7) X10^3/uL Absolute Lymphs (auto) 1.35 (0.83-4.51) X10^3/uL Nucleated RBC % 0 (0-5) % PT (11.7-14.9) SECONDS INR APTT (24.1-36.2) Seconds Sodium (136-145) mmol/L Potassium (3.5-5.1) mmol/L Chloride (98-107) mmol/L Carbon Dioxide (21.0-32.0) mmol/L Anion Gap (5-15) BUN (7-18) mg/dL Creatinine (0.70-1.30) mg/dL Estim Creat Clear Calc ml/min Est GFR (MDRD) Af Amer (>60) mL/min Est GFR (MDRD) Non-Af (>60) mL/min BUN/Creatinine Ratio (10-20) RATIO Glucose (74-106) mg/dL Hemoglobin A1c (4.2-6.3) % Calcium (8.5-10.1) mg/dL Magnesium (1.6-2.6) mg/dL Total Bilirubin (0.20-1.00) mg/dL AST (15-37) U/L ALT (16-61) U/L Alkaline Phosphatase (45-117) U/L Troponin I (<0.045) ng/mL Total Protein (6.4-8.2) g/dL Albumin (3.2-5.0) g/dL Globulin (2.2-4.2) g/dL Albumin/Globulin Ratio (0.9-2.4) RATIO Triglycerides ( - 199) mg/dL Cholesterol (200) mg/dL LDL Cholesterol (0-130) mg/dL VLDL Cholesterol (5-40) mg/dL HDL Cholesterol (40 - ) mg/dL Lipase (73-393) U/L TSH (0.358-3.74) uIU/mL POC Glucose (70-110) mg/[facility] None Procedures: 2-D Echocardiogram - Interpretation Summary The estimated ejection fraction is 65 %. Stage 1 diastolic dysfunction. Mildly dilated right ventricle. Trivial mitral valve insufficiency. Trivial tricuspid valve insufficiency. Right ventricular systolic pressure estimated to be 40 mmHg. Mild pulmonary hypertension. Trivial aortic valve insufficiency. The study was technically difficult. Contrast injection was performed. There is no comparison study available., Stress test - Interpretation Summary The estimated ejection fraction is 65 %. Normal, adequate, dobutamine echocardiogram. Negative for ischemia by EKG and echocardiographic criteria. No anginal symptoms noted. No arrhythmias noted. Test terminated due to attainment of target heart rate. Appropriate blood pressure response to dobutamine. Final LVEF is 75%. Decreased sensitivity due to poor echo windows requiring Definity agent. Patient tolerated procedure well, no complications. The study was technically difficult. Contrast injection was performed. Summary of Care Provided: The patient is an 83-year-old male with a past medical history of hypertension, diabetes mellitus type 2 and recent left TKR at [place] on 03/15/2019 who has been doing PT at home. He routinely checks his BP at home and in the evening of 03/20/2019 his blood pressure was in the 200 systolic range. He experienced some nausea but denied chest pain. He also denied shortness of breath, visual changes, headaches, lightheadedness. Blood pressure at arrival to the emergency room was 229/111. The heart rate was 95 and the respiratory rate was 20 and he was maintaining appropriate oxygen saturation on room air. CBC was remarkable for a hemoglobin of 12.3, likely decreased from recent left TKR. Sodium was mildly decreased at 135 and the BUN was 19 with a creatinine of 0.98. The initial troponin was 0.041 and the second troponin was 0.049. TSH was normal at 0.52. Random blood sugar was 154 and the hemoglobin A1c was 6.7. Chest x-ray showed no infiltrates, pleural effusions or pulmonary vascular congestion. EKG showed normal sinus rhythm at a rate of 86 bpm with no suspicious ST or T wave changes. He was given 10 mg of IV hydralazine, 10 mg of IV labetalol and 0.1 mg of clonidine and admitted to a monitored bed on PCU. Blood pressure improved to 158/93. Cardiology was consulted because of the elevated troponin. He was seen in consultation by Dr. Franki Pollock and an echocardiogram and stress echocardiogram was ordered. The echocardiogram showed a 65% ejection fraction with stage I diastolic dysfunction and a mildly dilated right ventricle. The right ventricular systolic pressure was estimated to be 48. There was no significant valvular heart disease. The dobutamine stress echo showed the heart rate increased to 86% of his age-predicted maximum heart rate. There were no significant ST or T wave changes to suggest ischemia. The estimated ejection fraction was 65%. The interpretation was negative for ischemia by EKG and echocardiographic criteria. At admission To PCU he was started on his regular home medications for hypertension and never required any additional IV medication for blood pressure control. Blood pressures from midnight to discharge ranged from 108/58-120 6/57. He was discharged home on 03/21/2019 and instructed to resume his regular home medications. He will follow-up with Dr. Lopez Up in 1 week to have his blood pressure rechecked. PHYSICAL EXAM: GENERAL: alert, oriented X 3, Cooperative, NAD ORAL: moist mucosa, no mucosal lesions NECK: No JVD, supple, trachea midline LUNGS: CTA, symmetric chest expansion HEART: RRR, Normal S1 and S2, no rub, no gallop ABDOMEN: soft, NT, ND, BS present, no guarding with palpation EXTREMITIES: no edema, no cyanosis, no calf tenderness SKIN: No rashes, no breakdown NEUROLOGIC: no focal neurologic deficits PSYCH: appropriate, normal affect, pleasant This note was generated with Pen[employer] dictation software. It may contain incorrect words, spelling, and punctuation that were not noted in checking the note before signing. Patient Problems: Active and Suspected Problems Elevated troponin level not due to acute coronary syndrome (Acute) Hypertensive urgency (Acute) - Physical Exam Vital Signs Temp Pulse Resp BP Pulse Ox 98.4 F 73 14 116/45 L 100 03/21/19 14:16 03/21/19 15:00 03/21/19 14:16 03/21/19 14:16 03/21/19 14:16 Oxygen Delivery Method Room Air Weight: 171 lb 15.369 oz Body Mass Index (BMI) 33.5 Intake and Output for Last 24 Hours 03/19/19 03/20/19 03/21/19 23:59 23:59 23:59 Intake Total 1000 / 1000 212.8 / 212.8 Balance 1000 / 1000 212.8 / 212.8 Laboratory Tests Past 24 Hrs 03/20/19 03/20/19 03/20/19 19:30 19:30 19:30 WBC 8.8 RBC 4.69 Hgb 12.3 L Hct 38.4 L MCV 81.9 MCH 26.2 L MCHC 32.0 RDW Std Deviation 39.9 RDW Coeff of Kofi 13.6 Plt Count 273 MPV 9.8 Immature Gran % (Auto) 0.800 Neut % (Auto) 69.5 Lymph % (Auto) 15.4 L Morrison % (Auto) 9.5 Eos % (Auto) 4.3 Baso % (Auto) 0.5 Absolute Neuts (auto) 6.1 Absolute Lymphs (auto) 1.35 Nucleated RBC % 0 PT 13.4 INR 1.0 APTT 35.8 Sodium 135 L Potassium 4.4 Chloride 99 Carbon Dioxide 29.0 Anion Gap 7 BUN 19 H Creatinine 0.98 Estim Creat Clear Calc 41.81 Est GFR (MDRD) Af Amer 94 Est GFR (MDRD) Non-Af 78 BUN/Creatinine Ratio 19.4 Glucose 154 H Hemoglobin A1c Calcium 9.3 Magnesium Total Bilirubin 0.30 AST 27 ALT 29 Alkaline Phosphatase 76 Troponin I 0.041 Total Protein 7.5 Albumin 3.1 L Globulin 4.4 H Albumin/Globulin Ratio 0.7 L Triglycerides Cholesterol LDL Cholesterol VLDL Cholesterol HDL Cholesterol Lipase 161 TSH 03/20/19 03/20/19 03/21/19 19:30 22:27 02:52 WBC RBC Hgb Hct MCV MCH MCHC RDW Std Deviation RDW Coeff of Kofi Plt Count MPV Immature Gran % (Auto) Neut % (Auto) Lymph % (Auto) Morrison % (Auto) Eos % (Auto) Baso % (Auto) Absolute Neuts (auto) Absolute Lymphs (auto) Nucleated RBC % PT INR APTT Sodium 137 Potassium 4.0 Chloride 102 Carbon Dioxide 25.0 Anion Gap 10 BUN 16 Creatinine 0.80 Estim Creat Clear Calc 51.22 Est GFR (MDRD) Af Amer 119 Est GFR (MDRD) Non-Af 99 BUN/Creatinine Ratio 20.0 Glucose 159 H Hemoglobin A1c 6.7 H Calcium 8.3 L Magnesium 1.3 L Total Bilirubin AST ALT Alkaline Phosphatase Troponin I 0.049 H Total Protein Albumin Globulin Albumin/Globulin Ratio Triglycerides 224 H Cholesterol 127 LDL Cholesterol 51 VLDL Cholesterol 45 H HDL Cholesterol 31 L Lipase TSH 0.52 03/21/19 03/21/19 02:52 09:22 WBC RBC Hgb Hct MCV MCH MCHC RDW Std Deviation RDW Coeff of Kofi Plt Count MPV Immature Gran % (Auto) Neut % (Auto) Lymph % (Auto) Morrison % (Auto) Eos % (Auto) Baso % (Auto) Absolute Neuts (auto) Absolute Lymphs (auto) Nucleated RBC % PT INR APTT Sodium Potassium Chloride Carbon Dioxide Anion Gap BUN Creatinine Estim Creat Clear Calc Est GFR (MDRD) Af Amer Est GFR (MDRD) Non-Af BUN/Creatinine Ratio Glucose Hemoglobin A1c Calcium Magnesium Total Bilirubin AST ALT Alkaline Phosphatase Troponin I 0.075 H 0.048 H Total Protein Albumin Globulin Albumin/Globulin Ratio Triglycerides Cholesterol LDL Cholesterol VLDL Cholesterol HDL Cholesterol Lipase TSH POC Glucose 03/21/19 03/21/19 11:51 06:44 POC Glucose 129 H 133 H Discharge Activity: Return to Normal Activity Call your doctor if you observe: Fever of 101 or Higher, Shortness of breath, Dizziness, Fainting spells, Swelling in the ankles, Chest pain Home Medications: Medications to take at Discharge metFORMIN HCl [Glucophage] 500 mg PO BIDCM 01/25/16 Acetaminophen [Tylenol] 1,000 mg PO Q8H PRN PRN 03/20/19 Aspirin 325 mg PO DAILY@0800 03/20/19 Lisinopril/Hydrochlorothiazide [Lisinopril-Hctz 20-12.5 mg Tab] 2 ea PO QHS 03/20/19 Metoprolol Tartrate [Lopressor (beta yisel)] 50 mg PO DAILY 03/20/19 Oxycodone [Oxyir] 5 mg PO Q4H PRN PRN 03/20/19 Sitagliptin Phosphate [Januvia] 100 mg PO DAILY 03/20/19 Primary Care Physician: Lopez Up DO [Primary Care Provider] - Please follow up with your Primary Care Physician in: 1 week to check the BP Disposition: Home Minutes spent on discharge:: 30 Medical Necessity - Tobacco Use Smoking Status: Never smoker Tobacco Use: Non-smoker Meaningful Use Info Meaningful Use Diagnoses (Choose all that apply): None applicable Code Visit OBSV E&M: 59946 Observation care discharge
== END 2019-03-21 15:45 | disposition home or self-care (01) ==
LOC: ED 19:06 → PCU 03-21 00:10
PROVIDERS: Admitting Provider Internal Medicine; Emergency Provider Emergency Medicine; Family Provider Student in an Organized Health Care Education/Training Program; PCP Student in an Organized Health Care Education/Training Program; Referring Provider Internal Medicine; Visit Provider Internal Medicine
DX: I16.0 Hypertensive urgency (principal); R79.89 Other specified abnormal findings of blood chemistry; R11.2 Nausea with vomiting, unspecified; I10 Essential (primary) hypertension; E11.9 Type 2 diabetes mellitus without complications; E83.42 Hypomagnesemia; E66.9 Obesity, unspecified; I27.20 Pulmonary hypertension, unspecified; Z79.899 Other long term (current) drug therapy; Z79.84 Long term (current) use of oral hypoglycemic drugs; Z79.82 Long term (current) use of aspirin; Z68.33 Body mass index [BMI] 33.0-33.9, adult; Z71.3 Dietary counseling and surveillance
CPT/HCPCS: 36415; 71045; 80048; 80053; 80061; 82962; 83036; 83690; 83735; 84443; 84484; 85025; 85610; 85730; 93005; 93017; 93306; 93350; 93971; 96361; 96372; 96374; 96375; 96376; 97162; 97166; 99218; 99285; J7030; J7040; Q9957; A4216; C8928; C8929; G0378; J2405

== ENCOUNTER 2019-03-22 06:26 | Observation (INO) | payer MEDICAID, SELFPAY ==
[2019-03-21 01:06] VITALS: BMI 33.5
[2019-03-22] VITALS (15 sets, daily range): BP systolic 164–216; BP diastolic 76–108; PULSE 65–84; RESP 12–18; TEMP 36.4–36.9; O2SAT 95–100; BMI 33.6; BMI 33.7; BMI 33.8
--- NOTE | 2019-03-22 06:55 | RAD_ITS ---
STUDY: X-RAY CHEST REASON FOR EXAM: Male, 83 years old. Chest pain TECHNIQUE: Portable chest COMPARISON: 03/20/2019. FINDINGS: There is new widening of the superior mediastinum. The lungs are clear and expanded. There is no demonstrated pleural abnormality. Normal size heart. Normal mediastinum and otis. Normal visualized pulmonary arteries. Normal visualized aortic arch and descending thoracic aorta. Normal visualized thoracic spine. Normal visualized ribs, clavicles, and shoulders. There is no demonstrated abnormality of the visualized soft tissue structures of the upper abdomen. RAD/Chest 1 View (Portable) IMPRESSION: There is new widening of the superior mediastinum. This may be secondary to technique and/or distention of the superior vena cava. However this could be secondary to hemorrhage, aortic dissection or aneurysm. CT chest follow-up is recommended Electronically Signed: Carlos Coyne, at 7:43 EDT Tel , Service support ,
--- NOTE | 2019-03-22 06:56 | EKG12_ITS ---
Test Reason : REPEAT Blood Pressure : / mmHG Vent. Rate : 070 BPM Atrial Rate : 070 BPM P-R Int : 168 ms QRS Dur : 084 ms QT Int : 388 ms P-R-T Axes : 047 -08 030 degrees QTc Int : 419 ms Normal sinus rhythm with sinus arrhythmia Normal ECG Confirmed by ANITA DARBY, DELVIS ([id number]), video tape editor ASHA PLATT ([id number]) on 03/28/2019 9:32:25 AM Referred By: Karen Rivera Confirmed By:GISSELLE HOWARD MD
[2019-03-22 07:04] LABS: Absolute Lymphocyte Count 1.57 X10^3/uL (0.83-4.51); Absolute Neutrophil Count 6.4 X10^3/uL (2.0-7.7); Basophil# 0.07 X10^3/uL; Basophil% 0.8 % (0-1); Eosinophil# 0.39 X10^3/uL; Eosinophils% 4.2 % (0-5); Hematocrit 35.7 % (40-54); Hemoglobin 12.4 g/dL (13.0-16.5); Lymphocyte # 1.57 X10^3/ul (4.0); Lymphocyte % 16.8 % (19-41); Mean Corp Hgb Conc 34.7 g/dL (32-36); Mean Corpuscular Hgb 28.2 pg (27.0-32.0); Mean Corpuscular Volume 81.1 fL (80-94); Mean Platelet Vol. 10.3 fl (6.2-12.0); Monocyte% 8.6 % (0-10); NRBC Flagged by Analyzer 0 % (0-5); Neutrophil # 6.36 X10^3/uL (2.7-7.7); Neutrophil % 68.2 % (47-70); Platelet Count 320 K/mm3 (150-450); RBC Distribution Width CV 13.6 % (11.6-14.6); RBC Distribution Width SD 39.8 fl (35.1-43.9); White Blood Count 9.3 K/mm3 (4.4-11.0)
[2019-03-22] MEDS: Ondansetron 4 MG/2 ML Vial IV ×3 (07:06→22:29)
--- NOTE | 2019-03-22 07:07 | ED.RN ---
FLUIDS STARTED AT 150ML/HR, NEED VERIFIED BY PHARMACY.
[2019-03-22] MEDS: 0.9% Normal Saline 1,000 ML 150 ML IV ×3 (07:10→18:53)
[2019-03-22 07:18] LABS: ALB/GLOB Ratio 0.7 RATIO (0.9-2.4); AST(SGOT) 19 U/L (15-37); Alanine Aminotransfer ALT/SGPT 22 U/L (16-61); Alkaline Phosphatase 70 U/L (45-117); Anion Gap 5 (5-15); BUN 19 mg/dL (7-18); BUN/Creat Ratio 17.6 RATIO (10-20); Calcium,Total 9.3 mg/dL (8.5-10.1); Chloride 96 mmol/L (98-107); Creatinine, Serum 1.08 mg/dL (0.70-1.30); EST Glomerular Filtration Rate 70 mL/min (>60); Est Glom Filt Rate - Afr Amer 84 mL/min (>60); Estimated Creatinine Clearance 37.94 ml/min; Globulin 4.3 g/dL (2.2-4.2); Glucose 175 mg/dL (74-106); Lipase 200 U/L (73-393); Potassium 4.1 mmol/L (3.5-5.1); Protein, Total 7.3 g/dL (6.4-8.2); Sodium Level 131 mmol/L (136-145)
--- NOTE | 2019-03-22 07:33 | CT_ITS ---
STUDY: CTA CHEST REASON FOR EXAM: Male, 83 years old. Chest pain, nausea and vomiting. RADIATION DOSAGE (If Supplied By Facility): CTDIvol = ( 11.93 ) mGy, DLP = ( 308.71 ) mGycm TECHNIQUE: The examination was performed with the intravenous administration of 75 mL of Isovue-370. Post-processing of the angiographic images was performed, with multiplanar reformation and 3D reconstruction. Individualized dose optimization techniques were used for this CT. COMPARISON: Prior comparison studies are not available for review at this time. FINDINGS: Normal enhancement of the main pulmonary artery and right and left pulmonary arteries. Normal enhancement of the bilateral peripheral pulmonary arteries. There is no demonstrated pulmonary embolism. There is atherosclerotic calcification of the aortic arch with tortuosity. Maximum transverse dimension of the ascending thoracic aorta measures approximately 3.8 cm. There is no demonstrated aortic dissection. There is cardiomegaly. There are calcifications of the coronary arteries. Normal mediastinum. Normal hilar regions. Normal visualized trachea and bronchi. The lungs are well expanded. There is subsegmental atelectasis within the left lower lobe. The appears to be some calcified pleural plaque adjacent to the right lateral chest wall and right lower lobe. No pleural effusions are visualized. Normal chest wall structures. Normal osseous structures. There are calcified gallstones. CT/CTA Chest W/WO Contrast IMPRESSION: 1. No CTA demonstrated pulmonary embolism or arterial dissection. 2. Cholelithiasis. Electronically Signed: Elsie Jhaveri MD at 8:19 EDT , Service support ,
--- NOTE | 2019-03-22 07:37 | ED.VIS.GEN ---
History of Present Illness Chief Complaint: Hypertension Informant: Patient, Family Onset: Today Narrative: Patient here with significant other for reports of epigastric pain, mild chest pain with nausea and vomiting started at 2:30 AM. To emesis. No hematemesis. States his blood pressure was 206 systolic. He was just discharged yesterday for hypertensive urgency. He is on lisinopril hydrochlorothiazide he still on his metoprolol was added. He reports he took his blood pressure medicine at 2:30 AM. Currently complains of nausea symptoms. Reviewing of records, noted admission for hypertensive urgency, he had a troponin leak that is trended up to 0.075. He has a stress echo that was negative. He was seen by cardiology. Metoprolol was added, his blood pressure was trending down, he is discharged with outpatient follow-up. Patient had left lower extremity ultrasound of his leg that was negative for DVT. He had recent total knee arthroplasty. Prior similar symptoms: Yes Past Medical History - Allergies and Home Meds Allergies/Adverse Reactions: Allergies Penicillins Allergy (Verified 03/22/19 06:32) Rash naproxen [From Naprosyn] Adverse Reaction (Verified 03/22/19 06:32) Nausea/Vom/Diarrhea Primary Care Physician: Lopez Up DO [Primary Care Provider] - Smoking Status: Never smoker - Family History Paternal Family History: Reports: No pertinent history - Cardiac disease in first-degree family relative Review of Systems General: Denies: Chills, Fever, Sweats Eyes: Denies: Visual changes - bilaterally, Diplopia ENT: Denies: Rhinorrhea, Sore throat Cardiovascular: Reports: Chest pain. Denies: Palpitations Respiratory: Denies: Dyspnea, Cough, Dyspnea on exertion Gastrointestinal: Reports: Abdominal pain, Nausea, Vomiting. Denies: Diarrhea, Melena, Hematochezia Genitourinary: Denies: Dysuria, Hematuria, Frequency Musculoskeletal: Denies: Back pain, Extremity Pain Skin: Denies: Rash, Wounds Neurological: Denies: Headache, Weakness, Numbness Physical Exam Vital Signs/Narrative: Vital Signs Temp Pulse Resp BP Pulse Ox 03/22/19 06:27 98.2 F 80 17 198/86 H 97 Inital Vital Signs reviewed: Yes General: Well nourished, Well developed, No Acute Distress Head: Normocephalic, Atraumatic Eyes: Perrl, EOMI ENT: Moist mucous membranes, No rhinorrhea Neck: Supple, Nontender Cardiovascular: Regular rate, Regular rhythm, No murmurs Respiratory: No distress, CTA bilaterally, Chest nontender Abdomen: Soft, Nondistended, Normal bowel sounds, Tender, - - Tender palpation epigastrium, negative Downs's. Back: Nontender, Normal Inspection Extremities: Nontender, No edema Skin: Normal color, No rash Neurological: Alert, Oriented x3, Cranial nerves II-XII grossly intact, Normal Strength, Normal Sensation Psychological: Normal affect, Normal Mood Diagnostic/Tx/Re-eval Abnormal Lab Results 03/22/19 03/22/19 06:40 06:40 WBC 9.3 RBC 4.40 L Hgb 12.4 L Hct 35.7 L MCV 81.1 MCH 28.2 MCHC 34.7 RDW Std Deviation 39.8 RDW Coeff of Kofi 13.6 Plt Count 320 MPV 10.3 Immature Gran % (Auto) 1.400 H Neut % (Auto) 68.2 Lymph % (Auto) 16.8 L [place] % (Auto) 8.6 Eos % (Auto) 4.2 Baso % (Auto) 0.8 Absolute Neuts (auto) 6.4 Absolute Lymphs (auto) 1.57 Nucleated RBC % 0 Sodium 131 L Potassium 4.1 Chloride 96 L Carbon Dioxide 30.0 Anion Gap 5 BUN 19 H Creatinine 1.08 Estim Creat Clear Calc 37.94 Est GFR (MDRD) Af Amer 84 Est GFR (MDRD) Non-Af 70 BUN/Creatinine Ratio 17.6 Glucose 175 H Calcium 9.3 Total Bilirubin 0.50 AST 19 ALT 22 Alkaline Phosphatase 70 Troponin I 0.066 H Total Protein 7.3 Albumin 3.0 L Globulin 4.3 H Albumin/Globulin Ratio 0.7 L Lipase 200 - EKG Initial EKG Interpretation: Sinus Rhythm - Sinus rate of 71, no ST or T wave changes. - Medical Decision Making Patient blood pressure elevated on arrival. Complaints primarily nausea vomiting. Gentle fluids, Zofran was given. EKG was sinus rhythm. Labs ordered including abdominal labs, lipase and liver enzymes normal. Troponin returned slightly elevated 0.066. From records he was up to 0.075 in the hospital however he was trending down, this is slightly more elevated. Reviewing of records and cardiology consult, reports of low threshold of cardiac catheterization for diagnostic and possibility of CTA chest to rule out PE with his recent knee surgery. He had no chest pains during that evaluation for hospitalization. He has mild symptoms currently. He will be sent for CT angiogram to rule out PE. Patient signed out to morning physician. ED Disposition - Plan for ED Patient: Diagnosis: Chest pain, Abdominal pain, Nausea and vomiting Referrals: Lopez Up DO [Primary Care Provider] -
--- NOTE | 2019-03-22 08:48 | EKG12_ITS ---
Test Reason : Blood Pressure : / mmHG Vent. Rate : 068 BPM Atrial Rate : 068 BPM P-R Int : 166 ms QRS Dur : 080 ms QT Int : 444 ms P-R-T Axes : 052 -04 018 degrees QTc Int : 472 ms Normal sinus rhythm Normal ECG Confirmed by ANITA DARBY, DELVIS ([id number]), market editor ASHA PLATT ([id number]) on 03/28/2019 10:30:18 AM Referred By: Karen Rivera Confirmed By:GISSELLE HOWARD MD
--- NOTE | 2019-03-22 08:48 | US_ITS ---
STUDY: ABDOMINAL ULTRASOUND - RIGHT UPPER QUADRANT REASON FOR VISIT: Male, 83 years old with right upper quadrant abdominal pain. TECHNIQUE: Ultrasound evaluation of the right upper quadrant was performed with real-time and static vasquez-scale imaging. TECHNICAL QUALITY: Adequate. Examination limited by bowel gas. COMPARISON: CT of the chest dated March 22, 2019. FINDINGS: Liver: The liver measures 13.3 cm. There is normal echogenicity of the liver. The bile ducts are within normal limits. There is hepatic color flow. The direction of portal flow is hepatopetal. There is no demonstrated mass lesion. Gallbladder: There is a contracted gallbladder. The gallbladder wall measures 2.2 mm. There is a negative sonographic Downs's sign. There is no pericholecystic fluid. There are multiple echogenic structures within the gallbladder, consistent with multiple gallstones. Common Bile Duct (C.B.D.): The common bile duct measures 5.0 mm. Pancreas: Normal size of the head, body and tail of the pancreas. There is increased echogenicity of the pancreas. There is no demonstrated pancreatic mass or cyst. Right Kidney: Normal size of the right kidney. The right kidney measures 9.3 x 4.6 x 4.6 cm. There is thinning of the renal cortex. The right cortex measures 1.1 cm. There is no demonstrated renal mass or cyst. There is no right hydronephrosis. US/Gallbladder IMPRESSION: Cholelithiasis. Electronically Signed: Elsie Jhaveri MD at 10:44 EDT , Service support ,
[2019-03-22] MEDS: Metoprolol Tartrate 5 MG/5 ML Vial IV (09:25)
[2019-03-22] MEDS: Metoprolol Tartrate 50 MG Tablet PO (09:25)
--- NOTE | 2019-03-22 11:02 | ED.VISSUMM ---
- ER Visit Summary Date of Service: 03/22/19 Addendum: This patient was checked out to me with labs and imaging pending. Test Results: Chem-7 is remarkable for a sodium of 131, chloride of 96, BUN 19, glucose 175. Troponin is 0.066. Albumin is 3.0 and globulin is 4.3. Coags are normal. CBC shows an H&H of 12.4 and 35.7 with leukocytes of 17. Clinical Impression(s) from Imaging Studies Chest X-Ray 03/22/19 06:55 IMPRESSION: There is new widening of the superior mediastinum. This may be secondary to technique and/or distention of the superior vena cava. However this could be secondary to hemorrhage, aortic dissection or aneurysm. CT chest follow-up is recommended Electronically Signed: Carlos Coyne at 7:43 EDT Tel , Service support , Chest CTA 03/22/19 07:33 IMPRESSION: 1. No CTA demonstrated pulmonary embolism or arterial dissection. 2. Cholelithiasis. Electronically Signed: Elsie Jhaveri MD at 8:19 EDT , Service support , Gallbladder Ultrasound 03/22/19 08:48 IMPRESSION: Cholelithiasis. Electronically Signed: Elsie Jhaveri MD at 10:44 EDT , Service support , Emergency Department Course and Treatment: When the patient arrived his blood pressure was over 200 systolic. He had had decreased into the 150s range and has now become elevated at over 200 systolic again. Patient reports that he took his lisinopril/hydrochlorothiazide at 2 AM. He has not had his morning dose of metoprolol. He was given 5 mg of metoprolol IV and 50 mg p.o. However, his blood pressure has remained elevated and currently is 216/90. He was given a dose of hydralazine IV. Treatment Plan: The patient was discussed with Dr. Rivera. At this time he will be admitted to the hospital for further evaluation and treatment. Disposition: Admitted in stable condition. Impression: 1. Hypertensive urgency. 2. Indeterminate troponin. 3. Gallstones. This note was generated with [employer] dictation software. It may contain incorrect words, spelling, and punctuation that were not noted in review of the chart prior to signing ED Disposition - Plan for ED Patient: Diagnosis: Chest pain, Abdominal pain, Nausea and vomiting Referrals: Lopez Up DO [Primary Care Provider] -
[2019-03-22] MEDS: hydrALAZINE 20 MG/ML Vial 10 MG IV ×2 (11:05→18:50)
--- NOTE | 2019-03-22 11:09 | NURSING ---
111 OBS SEMENTI HYPERTENSIVE URGENCY
[2019-03-22 12:36] LABS: Bedside Glucose 158 mg/dL (70-110)
[2019-03-22 12:52] LABS: Free T3 2.6 pg/mL (2.18-3.98)
--- NOTE | 2019-03-22 14:14 | HP.PCM_ITS ---
Problem List (1) Status post total knee replacement, left Status: Chronic (2) Elevated troponin level not due to acute coronary syndrome Status: Acute (3) Obesity (BMI 30.0-34.9) Status: Chronic (4) Diabetes mellitus type 2 in obese Status: Chronic (5) Hypertensive urgency Status: Acute History of Present Illness Date of Admission: 03/22/19 Chief Complaint: Nausea, vomiting and abdominal pain. The patient is a 83 year old M who presents emergency room due to nausea, vomiting and abdominal pain. Patient was discharged yesterday following work-up for hypertensive urgency and chest pain. He underwent stress echo 03/21/2018 which was negative for ischemia. His blood pressure was well controlled at discharge. Patient reports around 2:00 this morning, he developed nausea and vomiting as well as epigastric pain. He checked his blood pressure at that time and reports his systolic blood pressure was greater than 200. He took his morning medications and again took his blood pressure which was not improved. He denies headache, vision changes, chest pain or other associated symptoms. He denies diarrhea. He has a past medical history of type 2 diabetes mellitus, obesity, hypertension and recent left total knee replacement. Past Medical History Past Medical History (Chronic Problems): Chronic Problems Status post total knee replacement, left (Chronic) Obesity (BMI 30.0-34.9) (Chronic) Diabetes mellitus type 2 in obese (Chronic) Allergies Penicillins Allergy (Verified 03/22/19 06:32) Rash naproxen [From Naprosyn] Adverse Reaction (Verified 03/22/19 06:32) Nausea/Vom/Diarrhea Home Medications: Ambulatory Orders Medication Instructions Recorded metFORMIN HCl [Glucophage] 500 mg PO BIDCM 01/25/16 Acetaminophen [Tylenol] 1,000 mg PO Q8H PRN PRN 03/20/19 Aspirin 325 mg PO DAILY@0800 03/20/19 Lisinopril/Hydrochlorothiazide 2 ea PO QHS 03/20/19 [Lisinopril-Hctz 20-12.5 mg Tab] Metoprolol Tartrate [Lopressor 50 mg PO DAILY 03/20/19 (beta yisel)] Oxycodone [Oxyir] 5 mg PO Q4H PRN PRN 03/20/19 Sitagliptin Phosphate [Januvia] 100 mg PO DAILY 03/20/19 Surgical History: - - Left knee replacement Psychiatric History: No pertinent psych hx Lives: Spouse/ Significant Other Smoking Status: Never smoker Alcohol: None Drugs: None - *Family History Paternal History Items: - - Denies known paternal medical history including cardiac history. Maternal History Items: - - Denies known paternal medical history including cardiac history. Review of Systems Constitutional: Denies: Chills, Fever, Weight Change HEENT: Denies: Head Aches, Sinus Congestion, Sinus Drainage Cardiovascular: Denies: Chest Pain, Edema, Light Headedness, Palpitations, Syncope Respiratory: Denies: Cough, Shortness of breath at rest, Sputum production Gastrointestinal: Reports: Abdominal Pain, Nausea, Vomiting Genitourinary: Denies: Dysuria Musculoskeletal: Denies: Joint Pain, Joint Tenderness Skin: Denies: Rash, Wounds Neurological: Denies: Numbness, Tingling, Focal weakness Psychiatric: Denies: Anxiety, Depression, Homicidal Ideations, Suicidal Id eations Hematologic/ Lymphatic: Denies: Easy Bruising, Easy Bleeding VTE Information - Inpt Only VTE Present on Admission: No VTE Mechan Device Prophylaxis: None VTE Pharm Prophylaxis ordered?: Yes Patient Problems: Active and Suspected Problems Elevated troponin level not due to acute coronary syndrome (Acute) Hypertensive urgency (Acute) - Physical Exam General: Alert, Oriented x3, Cooperative HEENT: Atraumatic, PERRLA, EOMI, Normocephalic Neck: Supple, No JVD, Negative Carotid Bruits Lungs: Clear to auscultation, Normal air movement Cardiovascular: Regular rate, Regular Rhythm, Normal S1, Normal S2, No murmurs Abdomen: Bowel Sounds Present, Soft, Non-Distended, Obese, Tender - RUQ /epigastric Extremities: No clubbing, No cyanosis, No edema, Capillary Refill Less than 3 Seconds Skin: No rashes, No breakdown Musculoskeletal: No Tenderness to Palpation of Joints or Extremities Neurological: Cranial nerves II-XII grossly intact, Neuro grossly intact Psych/Mental Status: Normal Affect, Appropriate Vital Signs Temp Pulse Resp BP Pulse Ox 97.5 F L 69 16 169/92 H 99 03/22/19 12:35 03/22/19 12:39 03/22/19 12:35 03/22/19 12:39 03/22/19 12:35 Oxygen Delivery Method Room Air Weight: 171 lb 15.369 oz Body Mass Index (BMI) 33.7 Orthostatic Vital Signs Start: 03/22/19 12:39 Freq: q24h Status: Active Protocol: Activity Type Activity Date Activity User E-Sign Co-Sign Detail Recorded Client Recorded Date Recorded By Document 03/22/19 12:39 KB [id number] 03/22/19 12:46 KB 03/22/19 12:39 Orthostatic Vitals Standing -Blood Pressure (90/60-120/80) 164/79 H -Extremity Use Right Arm -Pulse Rate (60-100) 68 Lying -Blood Pressure (90/60-120/80) 188/87 H -Extremity Use Right Arm -Pulse Rate (60-100) 65 Sitting -Blood Pressure (90/60-120/80) 169/92 H -Extremity Use Right Arm -Pulse Rate (60-100) 69 Intake and Output for Last 24 Hours 03/20/19 03/21/19 03/22/19 23:59 23:59 23:59 Intake Total 797.5 / 797.5 Balance 797.5 / 797.5 Laboratory Tests Past 24 Hrs 03/22/19 03/22/19 03/22/19 06:40 06:40 11:00 WBC 9.3 RBC 4.40 L Hgb 12.4 L Hct 35.7 L MCV 81.1 MCH 28.2 MCHC 34.7 RDW Std Deviation 39.8 RDW Coeff of Kofi 13.6 Plt Count 320 MPV 10.3 Immature Gran % (Auto) 1.400 H Neut % (Auto) 68.2 Lymph % (Auto) 16.8 L [place] % (Auto) 8.6 Eos % (Auto) 4.2 Baso % (Auto) 0.8 Absolute Neuts (auto) 6.4 Absolute Lymphs (auto) 1.57 Nucleated RBC % 0 Sodium 131 L Potassium 4.1 Chloride 96 L Carbon Dioxide 30.0 Anion Gap 5 BUN 19 H Creatinine 1.08 Estim Creat Clear Calc 37.94 Est GFR (MDRD) Af Amer 84 Est GFR (MDRD) Non-Af 70 BUN/Creatinine Ratio 17.6 Glucose 175 H Calcium 9.3 Total Bilirubin 0.50 AST 19 ALT 22 Alkaline Phosphatase 70 Troponin I 0.066 H 0.055 H Total Protein 7.3 Albumin 3.0 L Globulin 4.3 H Albumin/Globulin Ratio 0.7 L Lipase 200 Free T4 Free T3 pg/dL Cortisol 03/22/19 03/22/19 11:00 13:08 WBC RBC Hgb Hct MCV MCH MCHC RDW Std Deviation RDW Coeff of Kofi Plt Count MPV Immature Gran % (Auto) Neut % (Auto) Lymph % (Auto) [place] % (Auto) Eos % (Auto) Baso % (Auto) Absolute Neuts (auto) Absolute Lymphs (auto) Nucleated RBC % Sodium Potassium Chloride Carbon Dioxide Anion Gap BUN Creatinine Estim Creat Clear Calc Est GFR (MDRD) Af Amer Est GFR (MDRD) Non-Af BUN/Creatinine Ratio Glucose Calcium Total Bilirubin AST ALT Alkaline Phosphatase Troponin I Total Protein Albumin Globulin Albumin/Globulin Ratio Lipase Free T4 1.40 Free T3 pg/dL 2.6 Cortisol 44.40 H POC Glucose 03/22/19 12:31 POC Glucose 158 H Assessment/Plan All Active Problems Elevated troponin level not due to acute coronary syndrome (Acute) Hypertensive urgency (Acute) 1. Hypertensive urgency-recent stress echo 03/21/2019 showed EF 65%, negative for ischemia. Blood pressure stable at discharge at that time. Patient on metoprolol, lisinopril and hydrochlorothiazide. Resume home medications. As needed hydralazine for systolic blood pressure greater than 160. Urine for metanephrine ordered. Renal ultrasound ordered. Chest CTA negative for pulmonary embolism or arterial dissection. 2. Epigastric pain with nausea and vomiting-possible gastritis? Gallbladder ultrasound shows cholelithiasis, no other acute abnormality. PRN antiemetics. IV PPI. Clear liquid diet. 3. Indeterminate troponin-demand ischemia as a result of #1. Stress echo 03/21/2018 without ischemia. 4. Type 2 diabetes mellitus-hold metformin regimen. Continue Januvia. Hemog lobin A1c 03/20/2019 6.7%. 5. Obesity-encouraged diet and lifestyle modifications. 6. Recent left total knee replacement-denies significant pain. PT/OT. DVT prophylaxis- Lovenox sc This patient was seen by YEISON Adair under the supervision of Dr. Rivera.
[2019-03-22 17:25] LABS: Bedside Glucose 145 mg/dL (70-110)
[2019-03-22] MEDS: 0.9% NaCl Peripheral Flush Adult/Peds IV ×2 (18:24→18:50)
[2019-03-22] MEDS: proMETHazine 25 MG/ML Syringe 6.25 MG IV (18:24)
[2019-03-22 22:45] LABS: Bedside Glucose 138 mg/dL (70-110)
[2019-03-22] MEDS: hydrALAZINE 50 MG Tablet PO (22:48)
[2019-03-22] MEDS: hydroCHLOROthiazide 25 MG Tablet PO (22:48)
[2019-03-22] MEDS: Lisinopril 40 MG Tablet PO (22:49)
[2019-03-23] VITALS (20 sets, daily range): BP systolic 110–187; BP diastolic 48–87; PULSE 84–108; RESP 15–18; TEMP 36.7–37.1; O2SAT 96–100
[2019-03-23 00:47] LABS: Urea Nitrogen, Urine 338 mg/dL (NO RANGE EST.)
[2019-03-23] MEDS: 0.9% Normal Saline 1,000 ML 150 ML IV (03:21)
[2019-03-23] MEDS: hydrALAZINE 20 MG/ML Vial 10 MG IV ×2 (03:28→16:20)
[2019-03-23 06:45] LABS: Bedside Glucose 173 mg/dL (70-110)
[2019-03-23] MEDS: Insulin Lispro 100 UNIT/ML INSULN.PEN SC ×3 (06:46→21:55)
[2019-03-23 09:45] LABS: Bedside Glucose 151 mg/dL (70-110)
[2019-03-23] MEDS: Enoxaparin 40 MG/0.4 ML Syringe SC (10:21)
[2019-03-23] MEDS: Aspirin 325 MG Tablet PO (10:22)
[2019-03-23] MEDS: LINAGLIPTIN 5 MG TABLET PO (10:53)
--- NOTE | 2019-03-23 12:11 | PCM.PROGNOTE ---
Patient Problems: Active and Suspected Problems Elevated troponin level not due to acute coronary syndrome (Acute) Hypertensive urgency (Acute) Subjective: Patient seen and examined. Denies further nausea, vomiting. Abdominal pain resolved. Blood pressure improved this morning. - Physical Exam General: Alert, Oriented x3, Cooperative HEENT: Atraumatic, PERRLA, EOMI, Normocephalic Neck: Supple, No JVD, Negative Carotid Bruits Lungs: Clear to auscultation, Normal air movement Cardiovascular: Regular rate, Regular Rhythm, Normal S1, Normal S2, No murmurs Abdomen: Bowel Sounds Present, Soft, Non Tender, Non-Distended, Obese Extremities: No clubbing, No cyanosis, No edema, Capillary Refill Less than 3 Seconds Skin: No rashes, No breakdown Musculoskeletal: No Tenderness to Palpation of Joints or Extremities Neurological: Cranial nerves II-XII grossly intact, Neuro grossly intact Psych/Mental Status: Normal Affect, Appropriate Vital Signs Temp Pulse Resp BP Pulse Ox 98.8 F 94 16 139/71 H 97 03/23/19 08:58 03/23/19 11:04 03/23/19 08:58 03/23/19 08:58 03/23/19 08:58 Oxygen Delivery Method Room Air Weight: 171 lb 15.369 oz Body Mass Index (BMI) 33.7 Orthostatic Vital Signs Start: 03/22/19 12:39 Freq: q24h Status: Active Protocol: Activity Type Activity Date Activity User E-Sign Co-Sign Detail Recorded Client Recorded Date Recorded By Document 03/23/19 04:10 MAB [id number] 03/23/19 04:16 MAB 03/23/19 04:10 Orthostatic Vitals Standing -Blood Pressure (90/60-120/80) 127/84 H -Extremity Use Right Arm -Pulse Rate (60-100) 100 Lying -Blood Pressure (90/60-120/80) 157/72 H -Extremity Use Right Arm -Pulse Rate (60-100) 96 Sitting -Blood Pressure (90/60-120/80) 142/75 H -Extremity Use Right Arm -Pulse Rate (60-100) 94 Intake and Output for Last 24 Hours 03/21/19 03/22/19 03/23/19 23:59 23:59 23:59 Intake Total 3027.5 / 3027.5 1390 / 1390 Output Total 725 / 725 625 / 625 Balance 2302.5 / 2302.5 765 / 765 Laboratory Tests Past 24 Hrs 03/22/19 03/22/19 03/23/19 11:00 13:08 00:26 Free T4 1.40 Free T3 pg/dL 2.6 Cortisol 44.40 H Urine Creatinine 38.70 Urine Urea Nitrogen 03/23/19 03/23/19 00:26 05:15 Free T4 Free T3 pg/dL Cortisol 29.30 H Urine Creatinine Urine Urea Nitrogen 338 POC Glucose 03/23/19 03/23/19 03/22/19 09:00 06:33 22:32 POC Glucose 151 H 173 H 138 H 03/22/19 03/22/19 17:19 12:31 POC Glucose 145 H 158 H Medical Necessity - Tobacco Use Smoking Status: Never smoker Assessment/Plan All Active Problems Elevated troponin level not due to acute coronary syndrome (Acute) Hypertensive urgency (Acute) 1. Hypertensive urgency-recent stress echo 03/21/2019 showed EF 65%, negative for ischemia. Continue home lisinopril and hydrochlorothiazide. Initiated on hydralazine 50 mg p.o. 3 times daily. Blood pressure improved to this morning. 24 Urine for metanephrine pending. Renal ultrasound unable to be completed due to bowel/gas pattern. CTA of abdomen ordered to assess renal arteries. Chest CTA negative for pulmonary embolism or arterial dissection. A.m. cortisol level 29.30, mildly elevated. Continue to monitor blood pressure overnight and adjust medications as appropriate. 2. Suspected gastritis- gallbladder ultrasound shows cholelithiasis, no other acute abnormality. PRN antiemetics. IV PPI. Nausea, vomiting and abdominal pain improved on PPI. Advance diet. Patient will need oral PPI at discharge. 3. Indeterminate troponin-demand ischemia as a result of #1. Stress echo 03/21/2018 without ischemia. 4. Type 2 diabetes mellitus-hold metformin regimen. Continue Januvia. Hemoglobin A1c 03/20/2019 6.7%. 5. Obesity-encouraged diet and lifestyle modifications. 6. Recent left total knee replacement-denies significant pain. PT/OT. DVT prophylaxis- Lovenox sc This patient was seen by YEISON Adair under the supervision of Dr. Rivera.
[2019-03-23] MEDS: 0.9% Normal Saline 1,000 ML 125 ML IV ×2 (12:15→20:50)
--- NOTE | 2019-03-23 12:25 | CT_ITS ---
STUDY: CTA OF THE ABDOMINAL AORTA REASON FOR EXAM: Male, 83 years old. Hypertensive urgency status post left knee replacement RADIATION DOSAGE (If Supplied By Facility): CTDIvol = ( 21.83 ) mGy, DLP = ( 845.89 ) mGycm TECHNIQUE: Axial CT angiography multi-detector data acquisition was obtained from the to the following intravenous administration of IV Isovue 300 100. Axial images and MIP images were reconstructed from the axial data set. Post-processing of the angiographic images was performed, with multiplanar reformation and 3D reconstruction. Individualized dose optimization techniques were used for this CT. TECHNICAL QUALITY: Good COMPARISON: CTA chest obtained on 03/22/2019 FINDINGS: A CT scan of the lung bases was performed and shows the lung bases to be normal. The base of the heart is normal. The liver is normal. The spleen is normal. The adrenal glands are normal. The head, body, and tail of the pancreas are normal. The kidneys are normal with no evidence of calyceal calculi, masses, or obstructive uropathy seen. No abdominal masses or lesions are identified.Cholelithiasis is identified. The CTA of the abdominal aorta wasn't reviewed with coronal and sagittal reconstruction imaging. There is some mild calcific atherosclerosis probably involving the proximal abdominal aorta but also seen involving the distal abdominal aorta with no evidence of aneurysmal dilatation. This calcific arteriosclerosis extends into the origin of the common iliac arteries bilaterally and causes vessel remodeling with no significant arterial stenosis. There is calcific arteriosclerosis seen at the origin of the celiac axis causing 50% stenosis of the origin of the celiac axis. There is calcific atherosclerosis throughout the origin of the superior mesenteric artery causing approximately 20% stenosis of the origin of this vessel. The left renal artery appears to be normal at its origin. There is calcific arteriosclerosis and noncalcified plaque causing 50% stenosis of the origin of the right renal artery. The inferior mesenteric artery is normal at its origin. CT/CTA Abdomen W/WO Contrast IMPRESSION: 1. Cholelithiasis. 2. Calcific atherosclerosis of the abdominal aorta not causing significant stenosis. 3. 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 4. 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 Electronically Signed: Gui Vee, at 16:07 EDT Tel , Service support ,
[2019-03-23 12:55] LABS: Bedside Glucose 184 mg/dL (70-110)
[2019-03-23] MEDS: hydrALAZINE 50 MG Tablet PO ×2 (14:59→21:55)
[2019-03-23] MEDS: 0.9% NaCl Peripheral Flush Adult/Peds IV (16:20)
[2019-03-23 16:30] LABS: Bedside Glucose 178 mg/dL (70-110)
[2019-03-23] MEDS: hydroCHLOROthiazide 25 MG Tablet PO (21:55)
[2019-03-23] MEDS: Lisinopril 40 MG Tablet PO (22:00)
[2019-03-23 22:46] LABS: Bedside Glucose 161 mg/dL (70-110)
[2019-03-24] VITALS (17 sets, daily range): BP systolic 118–165; BP diastolic 63–94; PULSE 98–114; RESP 14–18; TEMP 36.6–37.2; O2SAT 97–99
[2019-03-24] MEDS: 0.9% Normal Saline 1,000 ML 125 ML IV (05:19)
[2019-03-24] MEDS: hydrALAZINE 50 MG Tablet PO ×3 (05:28→22:36)
[2019-03-24] MEDS: Ondansetron 4 MG/2 ML Vial IV (05:56)
--- NOTE | 2019-03-24 06:03 | EKG12_ITS ---
Test Reason : CP Blood Pressure : / mmHG Vent. Rate : 104 BPM Atrial Rate : 104 BPM P-R Int : 172 ms QRS Dur : 082 ms QT Int : 340 ms P-R-T Axes : 057 -11 039 degrees QTc Int : 447 ms Sinus tachycardia Otherwise normal ECG When compared with ECG of 22-MAR-2019 09:11, MANUAL COMPARISON REQUIRED, DATA IS UNCONFIRMED Confirmed by NAZARIO MENESES ([id number]), legal editor ASHA PLATT ([id number]) on 03/28/2019 10:42:43 AM Referred By: Karen Rivera Confirmed By:NAZARIO MENESES
[2019-03-24 06:23] LABS: Hematocrit 32.4 % (40-54); Hemoglobin 10.7 g/dL (13.0-16.5); Mean Corpuscular Hgb 26.3 pg (27.0-32.0); Mean Corpuscular Volume 79.6 fL (80-94); Mean Platelet Vol. 10.4 fl (6.2-12.0); Platelet Count 336 K/mm3 (150-450); RBC Distribution Width CV 13.6 % (11.6-14.6); RBC Distribution Width SD 39.2 fl (35.1-43.9); Red Blood Count 4.07 M/mm3 (4.6-6.2); White Blood Count 9.4 K/mm3 (4.4-11.0)
[2019-03-24 06:43] LABS: Anion Gap 10 (5-15); BUN 10 mg/dL (7-18); BUN/Creat Ratio 13.1 RATIO (10-20); Calcium,Total 8.4 mg/dL (8.5-10.1); Chloride 96 mmol/L (98-107); Creatinine, Serum 0.76 mg/dL (0.70-1.30); EST Glomerular Filtration Rate 104 mL/min (>60); Est Glom Filt Rate - Afr Amer 126 mL/min (>60); Estimated Creatinine Clearance 63.92 ml/min; Glucose 133 mg/dL (74-106); Potassium 3.2 mmol/L (3.5-5.1); Sodium Level 131 mmol/L (136-145)
[2019-03-24 06:50] LABS: Bedside Glucose 143 mg/dL (70-110)
[2019-03-24] MEDS: busPIRone 5 MG Tablet PO ×2 (09:56→22:36)
[2019-03-24] MEDS: Enoxaparin 40 MG/0.4 ML Syringe SC (09:56)
[2019-03-24] MEDS: LINAGLIPTIN 5 MG TABLET PO (09:56)
[2019-03-24] MEDS: Aspirin 325 MG Tablet PO (09:56)
--- NOTE | 2019-03-24 10:07 | PCM.PROGNOTE ---
Subjective: Patient seen and examined. at bedside. Reports episode of mild chest pain earlier this morning, has since resolved. Reports intermittent nausea, denies emesis. Denies abdominal pain. - Physical Exam General: Alert, Oriented x3, Cooperative HEENT: Atraumatic, PERRLA, EOMI, Normocephalic Neck: Supple, No JVD, Negative Carotid Bruits Lungs: Clear to auscultation, Normal air movement Cardiovascular: Regular rate, Regular Rhythm, Normal S1, Normal S2, No murmurs Abdomen: Bowel Sounds Present, Soft, Non Tender, Non-Distended, Obese Extremities: No clubbing, No cyanosis, No edema, Capillary Refill Less than 3 Seconds Skin: No rashes, No breakdown Musculoskeletal: No Tenderness to Palpation of Joints or Extremities Neurological: Cranial nerves II-XII grossly intact, Neuro grossly intact Psych/Mental Status: Normal Affect Vital Signs Temp Pulse Resp BP Pulse Ox 98.5 F 112 H 16 150/66 H 98 03/24/19 09:40 03/24/19 09:40 03/24/19 09:40 03/24/19 09:40 03/24/19 09:40 Oxygen Delivery Method Room Air Weight: 171 lb 15.369 oz Body Mass Index (BMI) 33.7 Orthostatic Vital Signs Start: 03/22/19 12:39 Freq: q24h Status: Active Protocol: Activity Type Activity Date Activity User E-Sign Co-Sign Detail Recorded Client Recorded Date Recorded By Document 03/24/19 03:46 [id number] 03/24/19 03:49 [email or web address] 03/24/19 03:46 Orthostatic Vitals Standing -Blood Pressure (90/60-120/80) 133/77 H -Extremity Use Right Arm -Pulse Rate (60-100) 114 H Lying -Blood Pressure (90/60-120/80) 135/63 H -Extremity Use Right Arm -Pulse Rate (60-100) 103 H Sitting -Blood Pressure (90/60-120/80) 138/72 H -Extremity Use Right Arm -Pulse Rate (60-100) 110 H Intake and Output for Last 24 Hours 03/22/19 03/23/19 03/24/19 23:59 23:59 23:59 Intake Total 3027.5 / 3027.5 3918.75 / 3918.75 1036.25 / 1036.25 Output Total 725 / 725 1175 / 1175 675 / 675 Balance 2302.5 / 2302.5 2743.75 / 2743.75 361.25 / 361.25 Laboratory Tests Past 24 Hrs 03/24/19 03/24/19 03/24/19 00:35 05:34 05:34 WBC 9.4 RBC 4.07 L Hgb 10.7 L Hct 32.4 L MCV 79.6 L MCH 26.3 L MCHC 33.0 RDW Std Deviation 39.2 RDW Coeff of Kofi 13.6 Plt Count 336 MPV 10.4 Sodium 131 L Potassium 3.2 L Chloride 96 L Carbon Dioxide 25.0 Anion Gap 10 BUN 10 Creatinine 0.76 Estim Creat Clear Calc 63.92 Est GFR (MDRD) Af Amer 126 Est GFR (MDRD) Non-Af 104 BUN/Creatinine Ratio 13.1 Glucose 133 H Calcium 8.4 L Urine Metanephrine Pending U Metanephrines 24 Hr Pending U Normetanephrine Pending U Normetanephrine 24h Pending POC Glucose 03/24/19 03/23/19 03/23/19 06:40 21:53 16:15 POC Glucose 143 H 161 H 178 H 03/23/19 12:44 POC Glucose 184 H Medical Necessity - Tobacco Use Smoking Status: Never smoker Assessment/Plan All Active Problems Elevated troponin level not due to acute coronary syndrome (Acute) Hypertensive urgency (Acute) 1. Hypertensive urgency-recent stress echo 03/21/2019 showed EF 65%, negative for ischemia. Continue home lisinopril and hydrochlorothiazide. Initiated on hydralazine 50 mg p.o. 3 times daily. Blood pressure improved however continues to have intermittent elevated blood pressure, appears to be mostly in the evening and morning. 24 Urine for metanephrine pending. Renal ultrasound unable to be completed due to bowel/gas pattern. CTA of abdomen completed which showed no significant renal artery stenosis. Chest CTA negative for pulmonary embolism or arterial dissection. A.m. cortisol level 29.30. Started on doxazosin 2 mg p.o. nightly. Anticipate discharge home tomorrow with endocrinology follow up as outpatient. 2. Suspected gastritis- gallbladder ultrasound shows cholelithiasis, no other acute abnormality. PRN antiemetics. IV PPI. Nausea, vomiting and abdominal pain improved on PPI. Patient will need oral PPI at discharge. 3. Indeterminate troponin-demand ischemia as a result of #1. Stress echo 03/21/2018 without ischemia. 4. Type 2 diabetes mellitus-hold metformin regimen. Continue Januvia. Hemoglobin A1c 03/20/2019 6.7%. 5. Obesity-encouraged diet and lifestyle modifications. 6. Recent left total knee replacement-denies significant pain. PT/OT. DVT prophylaxis- Lovenox ky This patient was seen by YEISON Adair under the supervision of Dr. Rivera.
[2019-03-24] MEDS: proMETHazine 25 MG/ML Syringe 6.25 MG IV ×2 (10:23→17:37)
[2019-03-24] MEDS: 0.9% NaCl Peripheral Flush Adult/Peds IV ×4 (10:23→22:37)
[2019-03-24] MEDS: Insulin Lispro 100 UNIT/ML INSULN.PEN SC ×2 (12:05→16:19)
[2019-03-24 12:15] LABS: Bedside Glucose 187 mg/dL (70-110)
[2019-03-24 16:21] LABS: Bedside Glucose 152 mg/dL (70-110)
[2019-03-24] MEDS: Doxazosin 1 MG Tablet 2 MG PO (22:36)
[2019-03-24] MEDS: hydroCHLOROthiazide 25 MG Tablet PO (22:36)
[2019-03-24] MEDS: Lisinopril 40 MG Tablet PO (22:37)
[2019-03-24 23:06] LABS: Bedside Glucose 133 mg/dL (70-110)
[2019-03-25 03:00] VITALS: PULSE 103
[2019-03-25 04:30] VITALS: BP 106/39; PULSE 104; RESP 18; TEMP 36.9; O2SAT 96
[2019-03-25 06:30] VITALS: BP 104/42; BP 110/42; BP 114/44; PULSE 107; PULSE 140; PULSE 98
[2019-03-25 07:00] VITALS: PULSE 132
[2019-03-25 07:04] LABS: Anion Gap 8 (5-15); BUN 11 mg/dL (7-18); BUN/Creat Ratio 8.6 RATIO (10-20); Calcium,Total 8.3 mg/dL (8.5-10.1); Chloride 100 mmol/L (98-107); Creatinine, Serum 1.28 mg/dL (0.70-1.30); EST Glomerular Filtration Rate 57 mL/min (>60); Est Glom Filt Rate - Afr Amer 69 mL/min (>60); Estimated Creatinine Clearance 49.93 ml/min; Glucose 130 mg/dL (74-106); Potassium 3.3 mmol/L (3.5-5.1); Sodium Level 134 mmol/L (136-145)
[2019-03-25 07:05] LABS: Bedside Glucose 135 mg/dL (70-110)
[2019-03-25 09:25] VITALS: BP 101/42; PULSE 107; RESP 16; TEMP 36.6; O2SAT 97
[2019-03-25] MEDS: Enoxaparin 40 MG/0.4 ML Syringe SC (09:33)
[2019-03-25] MEDS: busPIRone 5 MG Tablet PO (09:33)
[2019-03-25] MEDS: LINAGLIPTIN 5 MG TABLET PO (09:33)
[2019-03-25] MEDS: Aspirin 325 MG Tablet PO (09:33)
[2019-03-25] MEDS: Pantoprazole Sodium 40 MG Tablet PO (09:37)
--- NOTE | 2019-03-25 10:02 | PCM.DC ---
You will use the following diet at home:: Calorie/Carbohydrate Controlled (specify 1200, 1400, etc) Discharge Activity: Return to Normal Activity Call your doctor if you observe: Shortness of breath, Dizziness, Fainting spells, Chest pain Additional Instructions: Your home lisinopril/HCTZ combination medication was discontinued at discharge and you were given a prescription for lisinopril 40 mg daily only. This change was made due to potassium being low and HCTZ can cause you to become dehydrated. You will need repeat bloodwork, BMP on Tuesday which will be followed by your primary care provider Dr. Up. We also discussed following up with credit risk officer, Dr. Gay, here at the hospital in 2 weeks for further evaluation of possible hyperadrenalism (increased hormones) that can be contributing to your high blood pressure. Dr. Gay's number is listed below to call for appointment. Allergies/Adverse Reactions: Allergies Penicillins Allergy (Verified 03/22/19 06:32) Rash naproxen [From Naprosyn] Adverse Reaction (Verified 03/22/19 06:32) Nausea/Vom/Diarrhea Medications to take at Discharge metFORMIN HCl [Glucophage] 500 mg PO BIDCM 01/25/16 Acetaminophen [Tylenol] 1,000 mg PO Q8H PRN PRN 03/20/19 Aspirin 325 mg PO DAILY@0800 03/20/19 Oxycodone [Oxyir] 5 mg PO Q4H PRN PRN 03/20/19 Sitagliptin Phosphate [Januvia] 100 mg PO DAILY 03/20/19 Doxazosin Mesylate [Cardura] 2 mg PO QHS #60 tab 03/25/19 Lisinopril 40 mg PO DAILY #30 tab 03/25/19 Pantoprazole Sodium [Protonix] 40 mg PO DAILY #30 tab 03/25/19 hydrALAZINE [Apresoline] 50 mg PO TID #90 tab 03/25/19 The following prescriptions were given: hydrALAZINE [Apresoline] 50 mg PO TID #90 tab Transmission Status: [id number] Doxazosin Mesylate [Cardura] 2 mg PO QHS #60 tab Transmission Status: [id number] Lisinopril 40 mg PO DAILY #30 tab Transmission Status: [id number] Pantoprazole Sodium [Protonix] 40 mg PO DAILY #30 tab Transmission Status: Received by [id number] Orders to be completed after discharge: Basic Metabolic Profile (BMP) Time Frame: 03/28/19, Facility: [facility], Location: Laboratory Primary Care Physician: Lopez Up DO [Primary Care Provider] - Please follow up with your Primary Care Physician in: 1 Week Test Results: Test results from this visit will be discussed in further detail at your follow-up appointment, if applicable. Please Follow Up With: Devon Gay MD - [phone] When: Call Tuesday for appointment in 2 weeks. Endocrinology. Proposed Discharge Date: 03/25/19
--- NOTE | 2019-03-25 10:15 | PCM.DC.SUM ---
Discharge Date and Diagnosis Date of Admission: 03/22/19 Date of Discharge: 03/25/19 - Primary Discharge Diagnosis 1. Hypertensive urgency 2. Suspected gastritis 3. Indeterminate troponin-demand ischemia as a result of #1. 4. Type 2 diabetes mellitus 5. Obesity 6. Recent left total knee replacement 7. 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 This may be secondary to technique and/or distention of the superior vena cava. However this could be secondary to hemorrhage, aortic dissection or aneurysm. CT chest follow-up is recommended Electronically Signed: Carlos Coyne at 7:43 EDT Tel , Service support , Chest CTA 03/22/19 07:33 IMPRESSION: 1. No CTA demonstrated pulmonary embolism or arterial dissection. 2. Cholelithiasis. Electronically Signed: Elsie Jhaveri MD at 8:19 EDT , Service support , Gallbladder Ultrasound 03/22/19 08:48 IMPRESSION: Cholelithiasis. Electronically Signed: Elsie Jhaveri MD at 10:44 EDT , Service support , Abdomen CTA 03/23/19 12:25 IMPRESSION: 1. Cholelithiasis. 2. Calcific atherosclerosis of the abdominal aorta not causing significant stenosis. 3. 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 4. 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 Electronically Signed: Gui Vee at 16:07 EDT Tel , Service support , Operations: None Procedures: None Summary of Care Provided: The patient is a 83 year old M admitted 03/22/2019 due to nausea, vomiting, abdominal pain and elevated blood pressure. 1. Hypertensive urgency-recent stress echo 03/21/2019 showed EF 65%, negative for ischemia. Home lisinopril/HCTZ combination discontinued and patient will continue lisinopril only 40 mg daily at discharge. Initiated on hydralazine 50 mg p.o. 3 times daily. Additionally started on doxazosin 2 mg p.o. nightly. Blood pressure stable. 24-hour urine for metanephrine pending. Patient had elevated a.m. cortisol level, 29.3. CTA of abdomen completed which showed no significant renal artery stenosis. Chest CTA negative for pulmonary embolism or arterial dissection. Follow-up with primary care physician in 1 week. Follow-up with Dr. Gay, endocrinology in 2 weeks for possible hyperadrenalism. 2. Suspected gastritis- gallbladder ultrasound shows cholelithiasis, no other acute abnormality. Nausea, vomiting and abdominal pain improved on PPI. Protonix 40 mg daily at discharge. 3. Indeterminate troponin-demand ischemia as a result of #1. Stress echo 03/21/2018 without ischemia. 4. Type 2 diabetes mellitus-continue home oral regimen. Hemoglobin A1c 03/20/2019 6.7%. 5. Obesity-encouraged diet and lifestyle modifications. 6. Recent left total knee replacement-denies significant pain. Continue outpatient follow-up with orthopedic medicine. 7. Hypokalemia-secondary to HCTZ regimen. Replace per protocol. Repeat BMP on Tuesday. General: Alert, Oriented x3, Cooperative HEENT: Atraumatic, PERRLA, EOMI, Normocephalic Neck: Supple, No JVD, Negative Carotid Bruits Lungs: Clear to auscultation, Normal air movement Cardiovascular: Regular rate, Regular Rhythm, Normal S1, Normal S2, No murmurs Abdomen: Bowel Sounds Present, Soft, Non Tender, Non-Distended, Obese Extremities: No clubbing, No cyanosis, No edema, Capillary Refill Less than 3 Seconds Skin: No rashes, No breakdown Musculoskeletal: No Tenderness to Palpation of Joints or Extremities Neurological: Cranial nerves II-XII grossly intact, Neuro grossly intact Psych/Mental Status: Normal Affect Patient seen and examined prior to discharge. Physical assessment as noted above. Patient is stable for discharge with follow up recommendations as noted above. This patient was seen by YEISON Adair under the supervision of Dr. Rivera. - Physical Exam Vital Signs Temp Pulse Resp BP Pulse Ox 98 F 107 H 16 101/42 L 97 03/25/19 09:25 03/25/19 09:25 03/25/19 09:25 03/25/19 09:25 03/25/19 09:25 Oxygen Delivery Method Room Air Weight: 171 lb 15.369 oz Body Mass Index (BMI) 33.7 Orthostatic Vital Signs Start: 03/22/19 12:39 Freq: 0600 Status: Active Protocol: Activity Type Activity Date Activity User E-Sign Co-Sign Detail Recorded Client Recorded Date Recorded By Document 03/25/19 06:30 BS [id number] 03/25/19 06:37 BS 03/25/19 06:30 Orthostatic Vitals Standing -Blood Pressure (90/60-120/80) 110/42 L -Extremity Use Right Arm -Pulse Rate (60-100) 140 H Lying -Blood Pressure (90/60-120/80) 114/44 L -Extremity Use Right Arm -Pulse Rate (60-100) 98 Sitting -Blood Pressure (90/60-120/80) 104/42 L -Extremity Use Right Arm -Pulse Rate (60-100) 107 H Intake and Output for Last 24 Hours 03/23/19 03/24/19 03/25/19 23:59 23:59 23:59 Intake Total 3918.75 / 3918.75 2970.00 / 2970.00 Output Total 1175 / 1175 675 / 675 Balance 2743.75 / 2743.75 2295.00 / 2295.00 Laboratory Tests Past 24 Hrs 03/25/19 05:12 Sodium 134 L Potassium 3.3 L Chloride 100 Carbon Dioxide 26.0 Anion Gap 8 BUN 11 Creatinine 1.28 Estim Creat Clear Calc 49.93 Est GFR (MDRD) Af Amer 69 Est GFR (MDRD) Non-Af 57 L BUN/Creatinine Ratio 8.6 L Glucose 130 H Calcium 8.3 L POC Glucose 03/25/19 03/24/19 03/24/19 06:28 22:28 16:15 POC Glucose 135 H 133 H 152 H 10/12/19 12:03 POC Glucose 187 H Discharge Diet: Carb Control Diet Discharge Activity: Return to Normal Activity Call your doctor if you observe: Shortness of breath, Dizziness, Fainting spells, Chest pain Home Medications: Medications to take at Discharge metFORMIN HCl [Glucophage] 500 mg PO BIDCM 01/25/16 Acetaminophen [Tylenol] 1,000 mg PO Q8H PRN PRN 03/20/19 Aspirin 325 mg PO DAILY@0800 03/20/19 Oxycodone [Oxyir] 5 mg PO Q4H PRN PRN 03/20/19 Sitagliptin Phosphate [Januvia] 100 mg PO DAILY 03/20/19 Doxazosin Mesylate [Cardura] 2 mg PO QHS #60 tab 03/25/19 Lisinopril 40 mg PO DAILY #30 tab 03/25/19 Pantoprazole Sodium [Protonix] 40 mg PO DAILY #30 tab 03/25/19 hydrALAZINE [Apresoline] 50 mg PO TID #90 tab 03/25/19 Following Prescrptions Were Given to Patient: hydrALAZINE [Apresoline] 50 mg PO TID #90 tab Transmission Status: [id number] Doxazosin Mesylate [Cardura] 2 mg PO QHS #60 tab Transmission Status: [id number] Lisinopril 40 mg PO DAILY #30 tab Transmission Status: [facility] to [id number] Pantoprazole Sodium [Protonix] 40 mg PO DAILY #30 tab Transmission Status: [id number] Other Amb Orders: Basic Metabolic Profile (BMP) Time Frame: 03/28/19, Facility: [facility], Location: Laboratory Primary Care Physician: Lopez Up DO [Primary Care Provider] - Please follow up with your Primary Care Physician in: 1 Week Please Follow Up With: Devon Gay MD - [phone] When: Call Tuesday for appointment in 2 weeks. Endocrinology. Disposition: Home Minutes spent on discharge:: 35 Patient Condition:: Stable Medical Necessity - Tobacco Use Smoking Status: Never smoker Meaningful Use Info Meaningful Use Diagnoses (Choose all that apply): None applicable
[2019-03-28 14:08] LABS: Metanephrine, Ur 49 ug/L (Undefined); Normetanephrines, Ur 357 ug/L (Undefined)
[2019-03-28 15:23] LABS: Metanephrines, 24Ur 110 ug/24 hr (45-290); Normetanephrines, 24Ur 803 ug/24 hr (82-500)
== END 2019-03-25 10:04 | disposition home or self-care (01) ==
LOC: ED 07:46 → PCU 11:23
PROVIDERS: Emergency Medicine; Nurse Practitioner Family; Admitting Provider Internal Medicine; Emergency Provider Emergency Medicine; Family Provider Student in an Organized Health Care Education/Training Program; PCP Student in an Organized Health Care Education/Training Program; Referring Provider Internal Medicine; Visit Provider Internal Medicine
DX: I16.0 Hypertensive urgency (principal); R07.89 Other chest pain; I95.1 Orthostatic hypotension; R79.89 Other specified abnormal findings of blood chemistry; K80.20 Calculus of gallbladder without cholecystitis without obstruction; I24.8 Other forms of acute ischemic heart disease; E87.6 Hypokalemia; D50.9 Iron deficiency anemia, unspecified; I10 Essential (primary) hypertension; E66.9 Obesity, unspecified; E11.9 Type 2 diabetes mellitus without complications; Z79.899 Other long term (current) drug therapy; Z79.84 Long term (current) use of oral hypoglycemic drugs; Z68.33 Body mass index [BMI] 33.0-33.9, adult; Z71.3 Dietary counseling and surveillance
CPT/HCPCS: 36415; 71045; 71275; 74175; 76705; 80048; 80053; 82533; 82570; 82962; 83690; 83835; 84439; 84481; 84484; 84540; 85025; 85027; 93005; 96361; 96365; 96366; 96372; 96375; 96376; 99218; 99285; J7030; Q9967; A4216; G0378; J2405